=== PATIENT | male | born 1970 | race American Indian/Alaskan Native ===

== ENCOUNTER 2020-12-11 23:39 | Emergency (ER) | payer MEDICARE ==
[2020-12-12 01:20] LABS: Basophils % (Auto) 0.3 % (0.0-1.8); Eosinophils # (Auto) 0.1 K/mm3 (0.0-0.4); Eosinophils % (Auto) 0.9 % (0.0-4.3); Hematocrit 39.8 % (35.5-45.6); Lymphocytes # (Auto) 1.9 K/mm3 (1.2-5.4); Lymphocytes % (Auto) 26.2 % (13.4-35.0); Mean Corpuscular HGB Conc 33 % (32-34); Mean Corpuscular Volume 94 fl (84-94); Monocytes # (Auto) 0.7 K/mm3 (0.0-0.8); Monocytes % (Auto) 9.5 % (0.0-7.3); Platelet Count 260 K/mm3 (140-440); Red Blood Count 4.25 M/mm3 (3.65-5.03); Red Cell Distribution Width 13.8 % (13.2-15.2)
[2020-12-12 01:43] LABS: BUN/Creatinine Ratio 12; Blood Urea Nitrogen 11 mg/dL (9-20); Calcium 8.9 mg/dL (8.4-10.2); Hemolysis Index 5
[2020-12-12 01:47] LABS: Amphetamine Screen,Urine PRESUMPTIVE NEGATIVE; Benzodiazepines Screen,Urine PRESUMPTIVE NEGATIVE; Cannabinoid Screen,Urine PRESUMPTIVE NEGATIVE; Cocaine Screen,Urine PRESUMPTIVE NEGATIVE; Methadone Screen,Urine PRESUMPTIVE NEGATIVE; Opiate Screen,Urine PRESUMPTIVE NEGATIVE
[2020-12-12 02:02] LABS: Color,Urine Yellow (Yellow)
[2020-12-12 02:03] LABS: Bilirubin,Urine NEG (Negative); Blood,Urine MOD (Negative); Mucus,Urine FEW /HPF
--- NOTE | 2020-12-12 10:36 | Emergency Department Report ---
ED Psych HPI - General Chief Complaint: Psych Stated Complaint: EVALUATION Time Seen by Provider: 12/12/20 10:13 Source: patient, family Mode of arrival: Ambulatory - History of Present Illness Initial Comments: 58-year-old male, history of hypertension, diabetes, schizophrenia, anxiety, dementia, presents to ED for mental health evaluation. Patient states he has been hearing lots of voices in his head. Patient states they are not saying anything in particular. States the voices are "too much to handle." Patient states 2 days ago he had a disagreement with his , which turned into an argument. He states he became overwhelmed and went to the kitchen and grabbed a kitchen knife. Patient states his convinced him to put it down. Patient states he had no thoughts of hurting his , but did have some suicidal thoughts in that moment. Patient states he has been overwhelmed with a recent diagnosis of dementia, which patient does not believe to be true. Patient denies any alcohol or drug use. States he takes CBD Gummies. Patient states he is compliant with his psychiatric medications but they are not helping. According to triage note, family states he has been running around and acting up. MD Complaint: other -: unknown Associated Psychiatric Symptoms: suicidal ideation, auditory hallucinations Quality: intermittent Improves With: none Worsens With: none Context: significant life stressor Associated Symptoms: denies other symptoms Treatments Prior to Arrival: none If Self Harm: admits thoughts of - Related Data Home Medications Medication Instructions Recorded Confirmed Last Taken Gabapentin 300 mg PO TID 12/12/20 12/14/20 12/11/20 Hydralazine HCl 50 mg PO TID 12/12/20 12/14/20 12/11/20 Losartan [Cozaar] 100 mg PO DAILY 12/12/20 12/14/20 12/11/20 Pantoprazole [Protonix] 40 mg PO DAILY 12/12/20 12/14/20 12/11/20 Prazosin [Minipress] 2 mg PO HS 12/12/20 12/14/20 12/11/20 Sertraline [Zoloft] 100 mg PO DAILY 12/12/20 12/14/20 12/12/20 14:51 donepeziL [Aricept] 10 mg PO DAILY 12/12/20 12/14/20 12/11/20 lisinopriL [Lisinopril] 10 mg PO DAILY 12/12/20 12/14/20 12/11/20 Insulin Aspart 100 unit SQ UNK 12/14/20 12/15/20 Unknown Insulin Glargine [Lantus VIAL] 10 unit SUB-Q QHS 12/14/20 12/14/20 Unknown Insulin Glargine [Lantus VIAL] 10 units SUB-Q HS 12/14/20 12/14/20 Unknown Allergies Allergy/AdvReac Type Severity Reaction Status Date / Time No Known Allergies Allergy Verified 12/12/20 00:40 ED Review of Systems ROS: Stated complaint: EVALUATION Other details as noted in HPI Comment: All other systems reviewed and negative Psychiatric: auditory hallucinations, suicidal thoughts, other (Insomnia reported). denies: homicidal thoughts ED Past Medical Hx - Past Medical History Previous Medical History?: Yes Hx Hypertension: Yes Hx Diabetes: Yes Hx of Cancer: Yes (stomach remission) Hx Psychiatric Treatment: Yes (schizo anxiety) Additional medical history: dementia - Surgical History Past Surgical History?: Yes Additional Surgical History: gastric. right ankle. hernia with mesh - Social History Smoking Status: Never Smoker Substance Use Type: Alcohol, Marijuana - Medications Home Medications: Home Medications Medication Instructions Recorded Confirmed Last Taken Type Gabapentin 300 mg PO TID 12/12/20 12/14/20 12/11/20 History Hydralazine HCl 50 mg PO TID 12/12/20 12/14/20 12/11/20 History Losartan [Cozaar] 100 mg PO DAILY 12/12/20 12/14/20 12/11/20 History Pantoprazole [Protonix] 40 mg PO DAILY 12/12/20 12/14/20 12/11/20 History Prazosin [Minipress] 2 mg PO HS 12/12/20 12/14/20 12/11/20 History Sertraline [Zoloft] 100 mg PO DAILY 12/12/20 12/14/20 12/12/20 14:51 History donepeziL [Aricept] 10 mg PO DAILY 12/12/20 12/14/20 12/11/20 History lisinopriL [Lisinopril] 10 mg PO DAILY 12/12/20 12/14/20 12/11/20 History Insulin Aspart 100 unit SQ UNK 12/14/20 12/15/20 Unknown History Insulin Glargine [Lantus VIAL] 10 unit SUB-Q QHS 12/14/20 12/14/20 Unknown History Insulin Glargine [Lantus VIAL] 10 units SUB-Q HS 12/14/20 12/14/20 Unknown History ED Physical Exam - General Limitations: No Limitations General appearance: alert, in no apparent distress - Head Head exam: Present: atraumatic, normocephalic - Eye Eye exam: Present: normal appearance, EOMI - ENT ENT exam: Present: mucous membranes moist - Neck Neck exam: Present: normal inspection - Respiratory Respiratory exam: Present: normal lung sounds bilaterally. Absent: respiratory distress - Cardiovascular Cardiovascular Exam: Present: regular rate, normal rhythm - GI/Abdominal GI/Abdominal exam: Present: soft. Absent: distended, tenderness - Extremities Exam Extremities exam: Present: normal inspection - Neurological Exam Neurological exam: Present: alert, oriented X3 - Psychiatric Psychiatric exam: Present: normal affect, normal mood - Skin Skin exam: Present: warm, dry, intact, normal color ED Course Vital Signs 12/12/20 12/12/20 12/12/20 00:34 09:45 19:55 Temperature 98.4 F 98.8 F 97.6 F Pulse Rate 93 H 98 H 99 H Respiratory 16 18 18 Rate Blood Pressure 150/107 Blood Pressure 146/98 116/65 [Right] O2 Sat by Pulse 98 100 96 Oximetry 12/13/20 12/13/20 12/13/20 05:20 08:46 20:07 Temperature 97.7 F 98.0 F 97.6 F Pulse Rate 84 89 97 H Respiratory 18 18 18 Rate Blood Pressure Blood Pressure 126/80 163/87 110/77 [Right] O2 Sat by Pulse 97 98 98 Oximetry ED Medical Decision Making - Lab Data Result diagrams: 12/12/20 00:53 12/12/20 00:53 - Medical Decision Making 50-year-old male presents to ED with auditory hallucinations and suicidal ideations. Patient has been placed on a 1013. Labs unremarkable. Patient is medically clear for mental health evaluation. Will dispo per psych. Critical care attestation.: If time is entered above; I have spent that time in minutes in the direct care of this critically ill patient, excluding procedure time. ED Disposition Clinical Impression: Schizophrenia, Suicidal ideation Disposition: DC/TX-70 ANOTHER TYPE HLTHCARE Is pt being admited?: No Condition: Stable Referrals: KRYSTIAN CHACON,GARY [Other] - 3-5 Days
--- NOTE | 2020-12-12 10:37 | Consultation ---
History of Present Illness - Reason for Consult Consult date: 12/12/20 Reason for consult: SI - History of Present Psychiatric Illness Per ED Note: 58-year-old male, history of hypertension, diabetes, schizophrenia, anxiety, dementia, presents to ED for mental health evaluation. Patient states he has been hearing lots of voices in his head. Patient states they are not saying anything in particular. States the voices are "too much to handle." Patient states 2 days ago he had a disagreement with his , which turned into an argument. He states he became overwhelmed and went to the kitchen and grabbed a kitchen knife. Patient states his convinced him to put it down. Patient states he had no thoughts of hurting his , but did have some suicidal thoughts in that moment. Patient states he has been overwhelmed with a recent diagnosis of dementia, which patient does not believe to be true. Patient denies any alcohol or drug use. States he takes CBD Gummies. The patient was seen today, he is lying in bed awake. He is calm and cooperative. The patient says he's having suicidal thoughts, but denies having a plan. He says he has a history of anxiety, depression and schizophrenia. He says he had an argument with his and grabbed a knife to hurt himself. He denies wanting to hurt his and says "I wouldn't hurt my , I was trying to hurt myself." The patient says he "hears a lot of voices but I don't know what they are saying." He says "they are so bad at night that I can't sleep." The patient says "I have a lot of racing thoughts." PAST PSYCHIATRIC HISTORY: Diagnoses: schizophrenia, anxiety, depression Suicide attempts or Self-harm behavior: Denies Prior psychiatric hospitalizations: Yes Substance Abuse history: "gummies" Previous psychiatric medications tried: "I can't remember" Outpatient treatment: Yes PAST MEDICAL HISTORY: None reported Family Psychiatric History: None reported or documented SOCIAL HISTORY Marital Status: Living Arrangements: with spouse Employment Status: Disabled Access to guns/weapons: Denies Education: high school History of Abuse: Denies Legal History: Denies REVIEW OF SYSTEMS Constitutional: Negative for weight loss ENT: Negative for stridor Respiratory: Negative for cough or hemoptysis All other systems reviewed and are negative MENTAL STATUS EXAMINATION General Appearance and Behavior: Age appropriate, good hygiene, not wearing appropriate clothes, calm, cooperative, polite Cooperation: Participating Psychomotor Behavior: Psychomotor normal Mood: Depressed Affect and affective range: Restricted Thought Process: illogical Speech: Normal tone and pace Thought Content Suicidal Ideation: Yes Homicidal Ideation: Denies Hallucinations: Auditory Delusions: None elicited Impulse Control: Limited Insight and Judgment: Limited insight and judgment Memory: Limited Attention: Undivided Orientation: A/o x 3 Assessment and Plan (1) Schizophrenia Treatment Plan 1013 Start Risperidone 0.25mg po BID Start Prozac 10mg po daily Start Trazodone 50mg po qhs Sitter: Defer to primary Medical: Per primary Disposition: Recommend acute psychiatric inpatient Will follow. Thank you for this consult. Case staffed with Dr. Bass. Medications and Allergies Allergies Allergy/AdvReac Type Severity Reaction Status Date / Time No Known Allergies Allergy Verified 12/12/20 00:40 Mental Status Exam - Vital signs Last Vital Signs Temp 98.8 F 12/12/20 09:45 Pulse 98 H 12/12/20 09:45 Resp 18 12/12/20 09:45 BP 146/98 12/12/20 09:45 Pulse Ox 100 12/12/20 09:45 Results Result Diagrams: 12/12/20 00:53 12/12/20 00:53 Abnormal lab results 12/12/20 12/12/20 12/12/20 Range/Units 00:53 00:53 00:53 Cook % (Auto) (0.0-7.3) % Glucose 197 H (75-100) mg/dL Salicylates < 0.3 L (2.8-20.0) mg/dL Acetaminophen 5.0 L (10.0-30.0) ug/mL 12/12/20 Range/Units 00:53 Cook % (Auto) 9.5 H (0.0-7.3) % Glucose (75-100) mg/dL Salicylates (2.8-20.0) mg/dL Acetaminophen (10.0-30.0) ug/mL All other labs normal.
[2020-12-12] MEDS ORDERED: FLUoxetine 10 MG TAB PO SCH (11:00)
[2020-12-12] MEDS: risperiDONE 0.25 MG TAB PO SCH ×2 (11:18→22:06)
[2020-12-12] MEDS ORDERED: NON-FORMULARY EACH (Losartan [Cozaar] 100 MG Tablet) PO SCH (15:00)
[2020-12-12] MEDS ORDERED: NON-FORMULARY EACH (Prazosin [Minipress] 2 MG Capsule) PO SCH (15:00)
[2020-12-12] MEDS ORDERED: PANTOPRAZOLE 40 MG TAB PO SCH (15:00)
[2020-12-12] MEDS ORDERED: LISINOPRIL 10 MG TAB PO SCH (15:00)
[2020-12-12] MEDS: PRAZOSIN 1 MG CAP PO SCH (17:03)
[2020-12-12] MEDS: LOSARTAN 50 MG TAB PO SCH (17:03)
[2020-12-12] MEDS ORDERED: NON-FORMULARY EACH (Hydralazine Hcl [Hydralazine Hcl] 50 MG Tablet) PO SCH (20:00)
[2020-12-12] MEDS: hydrALAZINE 25 MG TAB PO SCH (22:00)
[2020-12-12] MEDS: GABAPENTIN 300 MG CAP PO SCH (22:05)
[2020-12-12] MEDS: traZODone 50 MG TAB PO SCH (22:05)
[2020-12-13] MEDS: GABAPENTIN 300 MG CAP PO SCH ×3 (08:00→23:35)
--- NOTE | 2020-12-13 08:59 | Progress Note ---
Subjective - Reason for Consult Consult date: 12/13/20 Reason for consult: SI/hallucinations - Chief Complaint Chief complaint: The patient was seen today, he says he has a lot of negative thoughts and hearing a lot of voices. He says the voices are telling him he's no good and people would be better off if he was no longer alive. He's talking about his and the problems they are having. This seems to be the source of his emotional instability. REVIEW OF SYSTEMS Constitutional: Negative for weight loss ENT: Negative for stridor Respiratory: Negative for cough or hemoptysis All other systems reviewed and are negative MENTAL STATUS EXAMINATION General Appearance and Behavior: Age appropriate, good hygiene, not wearing appropriate clothes, calm, cooperative, polite Cooperation: Participating Psychomotor Behavior: Psychomotor normal Mood: Depressed Affect and affective range: Restricted Thought Process: illogical Speech: Normal tone and pace Thought Content Suicidal Ideation: Yes Homicidal Ideation: Denies Hallucinations: Auditory Delusions: None elicited Impulse Control: Limited Insight and Judgment: Limited insight and judgment Memory: Limited Attention: Undivided Orientation: A/o x 3 Assessment and Plan (1) Schizophrenia Treatment Plan 1013 Increased Risperidone 0.5mg po BID Increased Prozac 20mg po daily Continue Trazodone 50mg po qhs Sitter: Defer to primary Medical: Per primary Disposition: Recommend acute psychiatric inpatient Will follow. Thank you for this consult. Case staffed with Dr. Bass. Mental Status Exam - Vital signs Last Vital Signs Temp 98.0 F 12/13/20 08:46 Pulse 89 12/13/20 08:46 Resp 18 12/13/20 08:46 BP 163/87 12/13/20 08:46 Pulse Ox 98 12/13/20 08:46
[2020-12-13] MEDS ORDERED: PANTOPRAZOLE 40 MG TAB PO SCH (10:00)
[2020-12-13] MEDS ORDERED: LISINOPRIL 10 MG TAB PO SCH (10:00)
[2020-12-13] MEDS ORDERED: FLUoxetine 20 MG CAP PO SCH (10:00)
[2020-12-13] MEDS: PRAZOSIN 1 MG CAP PO SCH (11:00)
[2020-12-13] MEDS: LOSARTAN 50 MG TAB PO SCH (12:09)
[2020-12-13] MEDS: hydrALAZINE 25 MG TAB PO SCH ×3 (12:09→23:34)
[2020-12-13] MEDS: risperiDONE 0.25 MG TAB PO SCH ×2 (12:10→23:35)
[2020-12-13 20:08] VITALS: BP 110/77
[2020-12-13] MEDS: traZODone 50 MG TAB PO SCH (23:35)
== END 2020-12-14 01:23 | disposition other institution (70) ==
LOC: EEVIPCON 23:39 → ED 23:39
DX: F25.9 Schizoaffective disorder, unspecified (principal); R45.851 Suicidal ideations; F41.9 Anxiety disorder, unspecified; F03.90 Unspecified dementia, unspecified severity, without behavioral disturbance, psychotic disturbance, mood disturbance, and anxiety; E11.9 Type 2 diabetes mellitus without complications; I10 Essential (primary) hypertension; F12.90 Cannabis use, unspecified, uncomplicated; Z98.890 Other specified postprocedural states; Z79.899 Other long term (current) drug therapy
CPT/HCPCS: 36415; 80048; 80307; 80320; 81001; 85025; G0480

== ENCOUNTER 2020-12-13 16:52 | Inpatient (IN) | payer MEDICARE ==
--- NOTE | 2020-12-14 07:37 | History and Physical Report ---
GP History & Physical - History of Present Illness Date of admission: 12/13/20 Date of Examination: 12/14/20 Reason for Admission: Impaired reality testing, Psychopathology interference, Severe anxiety/depression History of Present Illness: HPI Patient is a 50-year-old, currently , unemployed currently on disability lives with with past psychiatric history of schizophrenia, MDD, anxiety and bipolar and past medical history of hypertension who was admitted due to suicidal ideation and depression. Patient reports recently was diagnosed with early grade imaging signs of dementia per his primary care provider told him that he is not currently demented and that was by Dr. Parekh. Patient states he feels his schizophrenia is flaring back up, is not able to get things going on normally with his life. Patient reported dysfunctional family issues mostly surrounding his and her relationship with her family members including his older children as they are not able to get along together. Also reports being haunted by the loss of his son by his ex- whom is try to rebuild relationship with. Patient reported losing his for some in thousand and 4 due to prematurity and has since then been constantly feeling guilty about it Patient initially presented to [facility] emergency room with chief complaint of hearing voices in his head, patient reported the voices and the same thing in particular, stated voices are just too much to handle for him. Patient reported having a disagreement with his , which turned into an agreement irritated, and became overwhelmed or suicidal and also homicidal. She also reported recent diagnosis of dementia, which he does not believe to be true. Patient endorses compliance with his psychiatric medications. During my interview today patient appears very tearful and sad PAST PSYCHIATRIC HISTORY: Diagnoses: schizophrenia, anxiety, depression Suicide attempts or Self-harm behavior: Denies Prior psychiatric hospitalizations: Yes Substance Abuse history: "gummies" Previous psychiatric medications tried: "I can't remember" Outpatient treatment: Yes PAST MEDICAL HISTORY: None reported Family Psychiatric History: None reported or documented SOCIAL HISTORY Marital Status: Living Arrangements: with spouse Employment Status: Disabled Access to guns/weapons: Denies Education: high school History of Abuse: Denies Legal History: Denies REVIEW OF SYSTEMS Constitutional: Negative for weight loss ENT: Negative for stridor Respiratory: Negative for cough or hemoptysis All other systems reviewed and are negative MENTAL STATUS EXAMINATION General Appearance and Behavior: Age appropriate, good hygiene, wearing appropriate clothes,, good eye contact Cooperation: Participating/engaged, but Guarded Psychomotor Behavior: Psychomotor normal Mood: depressed Affect and affective range: irritable, labile Thought Process: illogical Thought Content: hopelessness, helplessness Speech: Normal rate, volume and rythm Intellectual Functioning: Average Suicidal Ideation: SI Homicidal Ideation: Denies HI Impulse Control: Impaired Insight and Judgment: Limited insight and judgment Memory: Normal Attention: Normal Orientation: Alert, oriented Assessment and Plan - Psychiatric problem (1) Bipolar 2 disorder Current Visit: Yes Status: Acute Treatment Plan Patient admitted for inpatient psychiatric evaluation, medication adjustment and close monitoring The patient's behavior, mood, sleep and appetite will be closely monitored. Patient enrolled in individual and group therapeutic sessions and encouraged to attend. Patient provided with a safe and structured environment. Patient's physical health needs will be addressed by the Hospitalist. Hospitalist Consulted Labs including CBC, CMP, Lipid profile and Hemoglobin A1C levels ordered for baseline reference Social Assessment will be completed and the Office Cashier will work with patient and family to ensure a suitable and safe disposition Medication adjustment will be made as clinically indicated Usual Wellness Orthodoxy/Preservation: - Start Trazodone 50 mg po QHS & 50 mg po QHS PRN between 10 PM & 2 AM for i nsomnia - Start Melatonin 5 mg po QHS to promote circadian rhythm - Start [place]-3 for brain health, reduce impulsivity, and as adjunctive treatment for mood disorder, continue upon discharge given overall benefits. - Start B1 prophylaxis with 200 mg po for 5 days The patient agreed on the treatment plan, understood the risk, benefit, alternative treatment, potential consequence of no treatment, and gave informed consent. Initial Certification Inpatient psych services: I certify that the inpatient psychiatric services are required for treatment that could reasonably be expected to improve the patient's condition. Estimated days: 7 Post hospital care: primary care provider, psychiatric provider Legal Status: Voluntary Patient Problems: Current Active Problems Bipolar 2 disorder (Acute) Reaction to Hospitalization: Accepting Medications and Allergies Allergies Allergy/AdvReac Type Severity Reaction Status Date / Time No Known Allergies Allergy Verified 12/12/20 00:40 Home Medications Medication Instructions Recorded Confirmed Last Taken Type Gabapentin 300 mg PO TID 12/12/20 12/12/20 12/11/20 History Hydralazine HCl 50 mg PO TID 12/12/20 12/12/20 12/11/20 History Losartan [Cozaar] 100 mg PO ONCE 12/12/20 12/12/20 12/11/20 History Pantoprazole [Protonix] 40 mg PO ONCE 12/12/20 12/12/20 12/11/20 History Prazosin [Minipress] 2 mg PO ONCE 12/12/20 12/12/20 12/11/20 History Sertraline [Zoloft] 100 mg PO ONCE 12/12/20 12/12/20 12/12/20 14:51 History donepeziL [Aricept] 10 mg PO ONCE 12/12/20 12/12/20 12/11/20 History lisinopriL [Lisinopril] 10 mg PO ONCE 12/12/20 12/12/20 12/11/20 History Active Meds: Active Medications Trazodone HCl (Trazodone 50 Mg Tab) 50 mg PO QHS [facility] Results - Results Labs/Vitals: Laboratory Last Values POC Glucose 131 mg/dL (70-105) H 12/14/20 03:35 Last Vital Signs Temp 97.5 F L 12/14/20 03:33 Pulse 87 12/14/20 03:33 Resp 16 12/14/20 03:33 BP 149/102 12/14/20 03:33 Pulse Ox 96 12/14/20 03:33 Physical Examination - Constitutional Vitals: Vital Signs Temp Pulse Resp BP Pulse Ox 97.5 F L 87 16 149/102 96 12/14/20 03:33 12/14/20 03:33 12/14/20 03:33 12/14/20 03:33 12/14/20 03:33 Temperature -Last 24 Hours Temperature 97.5 F Mental Status Exam - Vital signs Last Vital Signs Temp 97.5 F L 12/14/20 03:33 Pulse 87 12/14/20 03:33 Resp 16 12/14/20 03:33 BP 149/102 12/14/20 03:33 Pulse Ox 96 12/14/20 03:33 Assessment and Plan - Psychiatric problem (1) Bipolar 2 disorder Current Visit: Yes Status: Acute Physician Certification - Certification Statement Physician Certification Statement: This is an acknowledgement statement that OSMANY GUTIERREZ is a 50 year old M who requires inpatient psychiatric admission for treatment which could reasonably be expected to improve the patient's condition for Estimated period of time patient will need to remain in the hospital: [ ] Plan for post-hospital care: [ ]
[2020-12-14 09:04] LABS: Basophils % (Auto) 0.6 % (0.0-1.8); Eosinophils # (Auto) 0.1 K/mm3 (0.0-0.4); Eosinophils % (Auto) 1.4 % (0.0-4.3); Hematocrit 39.8 % (35.5-45.6); Hemoglobin 13.4 gm/dl (11.8-15.2); Lymphocytes # (Auto) 2.2 K/mm3 (1.2-5.4); Lymphocytes % (Auto) 34.2 % (13.4-35.0); Mean Corpuscular HGB Conc 34 % (32-34); Mean Corpuscular Volume 93 fl (84-94); Monocytes # (Auto) 0.6 K/mm3 (0.0-0.8); Monocytes % (Auto) 9.3 % (0.0-7.3); Platelet Count 255 K/mm3 (140-440); Red Blood Count 4.27 M/mm3 (3.65-5.03); Red Cell Distribution Width 13.7 % (13.2-15.2)
[2020-12-14 09:36] LABS: Alanine Aminotransferase 34 units/L (7-56); Albumin 3.7 g/dL (3.9-5); BUN/Creatinine Ratio 13; Blood Urea Nitrogen 12 mg/dL (9-20); Chol/HDL Ratio 3.22 %; HDL Cholesterol 72 mg/dL (40-59); Hemolysis Index 26; LDL Cholesterol,Direct 162 mg/dL (50-130)
[2020-12-14] MEDS: SERTRALINE 100 MG TAB PO SCH (11:14)
[2020-12-14] MEDS: DONEPEZIL 10 MG TAB PO SCH (11:14)
[2020-12-14] MEDS: ARIPiprazole 5 MG TAB PO SCH (11:14)
--- NOTE | 2020-12-14 13:08 | Consultation ---
History of Present Illness - Reason for Consult Consult date: 12/14/20 Medical Management Requesting physician: JONATHAN MALIK - History of Present Illness 50 YO Male with Obesity, DMdiet controlled, HTN, Schizophrenia, Dementia, Gastric Cancer in remission, JON admitted to [facility] for Psychiatric Stabilization. Pt seen and evaluated in his room. Pt denies fever, chills, CP, palpitations, NVD, Trauma, known COVID 19 Exposure, or recent ill contacts. No reported nursing events. No reported nursing events. Past History Past Medical History: cancer, diabetes, other (see hpi) Past Surgical History: hernia repair, Other ( gastric. right ankle. hernia with mesh) Social history: . denies: smoking, alcohol abuse, prescription drug abuse Family history: diabetes, hypertension Medications and Allergies Allergies Allergy/AdvReac Type Severity Reaction Status Date / Time No Known Allergies Allergy Verified 12/12/20 00:40 Home Medications Medication Instructions Recorded Confirmed Last Taken Type Gabapentin 300 mg PO TID 12/12/20 12/14/20 12/11/20 History Hydralazine HCl 50 mg PO TID 12/12/20 12/14/20 12/11/20 History Losartan [Cozaar] 100 mg PO DAILY 12/12/20 12/14/20 12/11/20 History Pantoprazole [Protonix] 40 mg PO DAILY 12/12/20 12/14/20 12/11/20 History Prazosin [Minipress] 2 mg PO HS 12/12/20 12/14/20 12/11/20 History Sertraline [Zoloft] 100 mg PO DAILY 12/12/20 12/14/20 12/12/20 14:51 History donepeziL [Aricept] 10 mg PO DAILY 12/12/20 12/14/20 12/11/20 History lisinopriL [Lisinopril] 10 mg PO DAILY 12/12/20 12/14/20 12/11/20 History Insulin Aspart 100 unit SQ 12/14/20 Unknown History Insulin Glargine [Lantus VIAL] 10 unit SUB-Q QHS 12/14/20 12/14/20 Unknown History Insulin Glargine [Lantus VIAL] 10 units SUB-Q HS 12/14/20 12/14/20 Unknown History Active Meds: Active Medications Aripiprazole (Aripiprazole 5 Mg Tab) 5 mg PO QDAY [facility] Last Admin: 12/14/20 11:14 Dose: 5 mg Documented by: Donepezil HCl (Donepezil 10 Mg Tab) 10 mg PO DAILY [facility] Last Admin: 12/14/20 11:14 Dose: 10 mg Documented by: Gabapentin (Gabapentin 300 Mg Cap) 300 mg PO TID [facility] Sertraline HCl (Sertraline 100 Mg Tab) 100 mg PO DAILY [facility] Last Admin: 12/14/20 11:14 Dose: 100 mg Documented by: Trazodone HCl (Trazodone 50 Mg Tab) 50 mg PO QHS [facility] Review of Systems Constitutional: no weight loss, no weight gain, no fever, no chills Ears, nose, mouth and throat: no ear pain, no tinnitis, no decreased hearing Cardiovascular: no chest pain, no rapid/irregular heart beat, no edema, no syncope Respiratory: no cough, no excessive sputum, no hemoptysis, no shortness of breath Gastrointestinal: no abdominal pain, no nausea, no diarrhea Genitourinary Male: no hematuria, no urinary frequency, no urinary hesitancy, no incontinence Musculoskeletal: no neck stiffness, no shooting arm pain, no arm numbness/tingling Integumentary: no rash, no redness, no sores Neurological: no head injury, no paralysis, no numbness, no syncope, no ataxia Psychiatric: no change in sleep habits, no change in appetite, no disorientation Endocrine: no cold intolerance, no excessive thirst, no polyuria, no nocturia, no weight change Hematologic/Lymphatic: no easy bruising Exam - Constitutional Vitals: Temp Pulse Resp BP Pulse Ox 97.5 F L 87 18 149/102 96 12/14/20 09:26 12/14/20 09:26 12/14/20 09:26 12/14/20 09:26 12/14/20 09:26 General appearance: Present: obese - EENT Eyes: Present: PERRL ENT: hearing intact, clear oral mucosa - Neck Neck: Present: supple, normal ROM - Respiratory Respiratory effort: normal Respiratory: bilateral: CTA - Cardiovascular Heart Sounds: Present: S1 & S2. Absent: rub, click - Extremities Extremities: pulses symmetrical, No edema Peripheral Pulses: within normal limits - Abdominal General gastrointestinal: Present: soft, non-tender, non-distended, normal bowel sounds Male genitourinary: Present: normal - Integumentary Integumentary: Present: clear, warm, dry - Musculoskeletal Musculoskeletal: gait normal, strength equal bilaterally - Psychiatric Psychiatric: appropriate mood/affect, intact judgment & insight - Neurologic Neurologic: CNII-XII intact, moves all extremities Results - Labs CBC & Chem 7: 12/14/20 08:30 12/14/20 08:30 Labs: Abnormal lab results 12/14/20 12/14/20 12/14/20 Range/Units 03:35 08:30 08:30 [place] % (Auto) 9.3 H (0.0-7.3) % Glucose 136 H (75-100) mg/dL POC Glucose 131 H (70-105) mg/dL Hemoglobin A1c (4-6) % Albumin 3.7 L (3.9-5) g/dL Cholesterol 232 H (50-199) mg/dL LDL Cholesterol Direct 162 H (50-130) mg/dL HDL Cholesterol 72 H (40-59) mg/dL 12/14/20 Range/Units 08:30 [place] % (Auto) (0.0-7.3) % Glucose (75-100) mg/dL POC Glucose (70-105) mg/dL Hemoglobin A1c 6.9 H (4-6) % Albumin (3.9-5) g/dL Cholesterol (50-199) mg/dL LDL Cholesterol Direct (50-130) mg/dL HDL Cholesterol (40-59) mg/dL Assessment and Plan - Patient Problems (1) HTN (hypertension) Current Visit: Yes Status: Acute Qualifiers: Hypertension type: essential hypertension Qualified Code(s): I10 - Essential (primary) hypertension Plan to address problem: Monitor blood pressure every shift, continue medical management (2) Diabetes Current Visit: Yes Status: Acute Plan to address problem: Consistent carbohydrate diet, (3) Anxiety Current Visit: Yes Status: Acute Plan to address problem: Supportive care, benzodiazepine therapy as clinically indicated (4) Dementia Current Visit: Yes Status: Acute Qualifiers: Alzheimer's disease onset: early-onset Plan to address problem: Supportive care, continue medical management, verbal prompting, verbal redirection
[2020-12-14] MEDS: GABAPENTIN 300 MG CAP PO SCH ×2 (14:42→21:17)
[2020-12-14] MEDS: traZODone 50 MG TAB PO SCH ×2 (20:21→21:17)
--- NOTE | 2020-12-15 08:24 | Progress Note ---
Subjective Date of service: 12/15/20 Principal diagnosis: (1) Bipolar 2 disorder Subjective Comment: Per Psych Nurse: Pt is appropriate on the unit, he is calm and cooperative, alert and orientedx3, reported feeling better, medication compliant, good appetite, no complaints voiced, rested well during the night, presents as sleeping for approximately 8hrs , no distress noted, will continue to monitor for safety. Psych Progress Patient reports sleeping good, denies having any nightmares, no voices in his head since yesterday night but reports when he woke up this morning he was hearing some voices in his head and then he realized other people around him so he could not really specifically state if the voices he was hearing was of those people or the voices that he was still hearing prior to coming here. Patient reports speaking with his sister and also with his yesterday reported conversation went pretty good, reports mood today has been okay, denies SI or HI Reason for continuing inpatient treatment: Patient showing mild to moderate response to treatment at this moment, will continue to observe for completion resolution of symptoms REVIEW OF SYSTEMS Constitutional: Negative for weight loss ENT: Negative for stridor Respiratory: Negative for cough or hemoptysis All other systems reviewed and are negative MENTAL STATUS EXAMINATION General Appearance and Behavior: Age appropriate, good hygiene, wearing appropriate clothes,, good eye contact Cooperation: Participating/engaged, but Guarded Psychomotor Behavior: Psychomotor normal Mood: depressed Affect and affective range: irritable, labile Thought Process: illogical Thought Content: hopelessness, helplessness Speech: Normal rate, volume and rythm Intellectual Functioning: Average Suicidal Ideation: SI Homicidal Ideation: Denies HI Impulse Control: Impaired Insight and Judgment: Limited insight and judgment Memory: Normal Attention: Normal Orientation: Alert, oriented Assessment and Plan - Psychiatric problem (1) Bipolar 2 disorder Current Visit: Yes Status: Acute Treatment Plan Continue current medication Patient admitted for inpatient psychiatric evaluation, medication adjustment and close monitoring The patient's behavior, mood, sleep and appetite will be closely monitored. Patient enrolled in individual and group therapeutic sessions and encouraged to attend. Patient provided with a safe and structured environment. Patient's physical health needs will be addressed by the Hospitalist. Hospitalist Consulted Labs including CBC, CMP, Lipid profile and Hemoglobin A1C levels ordered for baseline reference Social Assessment will be completed and the Grade School Teacher will work with patient and family to ensure a suitable and safe disposition Medication adjustment will be made as clinically indicated Usual Wellness [employer]/Preservation: - Start Trazodone 50 mg po QHS & 50 mg po QHS PRN between 10 PM & 2 AM for insomnia - Start Melatonin 5 mg po QHS to promote circadian rhythm - Start [place]-3 for brain health, reduce impulsivity, and as adjunctive treatment for mood disorder, continue upon discharge given overall benefits. - Start B1 prophylaxis with 200 mg po for 5 days The patient agreed on the treatment plan, understood the risk, benefit, alternative treatment, potential consequence of no treatment, and gave informed consent. Initial Certification Inpatient psych services: I certify that the inpatient psychiatric services are required for treatment that could reasonably be expected to improve the patient's condition. Estimated days: 6 Post hospital care: primary care provider, psychiatric provider Assessment and Plan - Patient Problems (1) Bipolar 2 disorder Current Visit: Yes Status: Acute Medications and Allergies Allergies Allergy/AdvReac Type Severity Reaction Status Date / Time No Known Allergies Allergy Verified 12/12/20 00:40 Home Medications Medication Instructions Recorded Confirmed Last Taken Type Gabapentin 300 mg PO TID 12/12/20 12/14/20 12/11/20 History Hydralazine HCl 50 mg PO TID 12/12/20 12/14/20 12/11/20 History Losartan [Cozaar] 100 mg PO DAILY 12/12/20 12/14/20 12/11/20 History Pantoprazole [Protonix] 40 mg PO DAILY 12/12/20 12/14/20 12/11/20 History Prazosin [Minipress] 2 mg PO HS 12/12/20 12/14/20 12/11/20 History Sertraline [Zoloft] 100 mg PO DAILY 12/12/20 12/14/20 12/12/20 14:51 History donepeziL [Aricept] 10 mg PO DAILY 12/12/20 12/14/20 12/11/20 History lisinopriL [Lisinopril] 10 mg PO DAILY 12/12/20 12/14/20 12/11/20 History Insulin Aspart 100 unit SQ 12/14/20 Unknown History Insulin Glargine [Lantus VIAL] 10 unit SUB-Q QHS 12/14/20 12/14/20 Unknown History Insulin Glargine [Lantus VIAL] 10 units SUB-Q HS 12/14/20 12/14/20 Unknown History Active Meds: Active Medications Aripiprazole (Aripiprazole 5 Mg Tab) 5 mg PO QDAY [facility] Last Admin: 12/14/20 11:14 Dose: 5 mg Documented by: Donepezil HCl (Donepezil 10 Mg Tab) 10 mg PO DAILY [facility] Last Admin: 12/14/20 11:14 Dose: 10 mg Documented by: Gabapentin (Gabapentin 300 Mg Cap) 300 mg PO TID [facility] Last Admin: 12/14/20 21:17 Dose: 300 mg Documented by: Sertraline HCl (Sertraline 100 Mg Tab) 100 mg PO DAILY [facility] Last Admin: 12/14/20 11:14 Dose: 100 mg Documented by: Trazodone HCl (Trazodone 50 Mg Tab) 50 mg PO QHS [facility] Last Admin: 12/14/20 21:17 Dose: 50 mg Documented by: Results - Results Labs/Vitals: Laboratory Last Values WBC 6.6 K/mm3 (4.5-11.0) 12/14/20 08:30 RBC 4.27 M/mm3 (3.65-5.03) 12/14/20 08:30 Hgb 13.4 gm/dl (11.8-15.2) 12/14/20 08:30 Hct 39.8 % (35.5-45.6) 12/14/20 08:30 MCV 93 fl (84-94) 12/14/20 08:30 MCH 32 pg (28-32) 12/14/20 08:30 MCHC 34 % (32-34) 12/14/20 08:30 RDW 13.7 % (13.2-15.2) 12/14/20 08:30 Plt Count 255 K/mm3 (140-440) 12/14/20 08:30 Lymph % (Auto) 34.2 % (13.4-35.0) 12/14/20 08:30 [place] % (Auto) 9.3 % (0.0-7.3) H 12/14/20 08:30 Eos % (Auto) 1.4 % (0.0-4.3) 12/14/20 08:30 Baso % (Auto) 0.6 % (0.0-1.8) 12/14/20 08:30 Lymph # (Auto) 2.2 K/mm3 (1.2-5.4) 12/14/20 08:30 [place] # (Auto) 0.6 K/mm3 (0.0-0.8) 12/14/20 08:30 Eos # (Auto) 0.1 K/mm3 (0.0-0.4) 12/14/20 08:30 Baso # (Auto) 0.0 K/mm3 (0.0-0.1) 12/14/20 08:30 Seg Neutrophils % 54.5 % (40.0-70.0) 12/14/20 08:30 Seg Neutrophils # 3.6 K/mm3 (1.8-7.7) 12/14/20 08:30 Sodium 140 mmol/L (137-145) 12/14/20 08:30 Potassium 3.8 mmol/L (3.6-5.0) 12/14/20 08:30 Chloride 103.6 mmol/L (98-107) 12/14/20 08:30 Carbon Dioxide 27 mmol/L (22-30) 12/14/20 08:30 Anion Gap 13 mmol/L 12/14/20 08:30 BUN 12 mg/dL (9-20) 12/14/20 08:30 Creatinine 0.9 mg/dL (0.8-1.3) 12/14/20 08:30 Estimated GFR > 60 ml/min 12/14/20 08:30 BUN/Creatinine Ratio 13 % 12/14/20 08:30 Glucose 136 mg/dL (75-100) H 12/14/20 08:30 POC Glucose 158 mg/dL (70-105) H 12/15/20 06:29 Hemoglobin A1c 6.9 % (4-6) H 12/14/20 08:30 Calcium 9.0 mg/dL (8.4-10.2) 12/14/20 08:30 Total Bilirubin 0.50 mg/dL (0.1-1.2) 12/14/20 08:30 AST 18 units/L (5-40) 12/14/20 08:30 ALT 34 units/L (7-56) 12/14/20 08:30 Alkaline Phosphatase 89 units/L (35-129) 12/14/20 08:30 Total Protein 7.5 g/dL (6.3-8.2) 12/14/20 08:30 Albumin 3.7 g/dL (3.9-5) L 12/14/20 08:30 Albumin/Globulin Ratio 1.0 % 12/14/20 08:30 Triglycerides 137 mg/dL (2-149) 12/14/20 08:30 Cholesterol 232 mg/dL (50-199) H 12/14/20 08:30 LDL Cholesterol Direct 162 mg/dL (50-130) H 12/14/20 08:30 HDL Cholesterol 72 mg/dL (40-59) H 12/14/20 08:30 Cholesterol/HDL Ratio 3.22 % 12/14/20 08:30 TSH 0.771 mlU/mL (0.270-4.200) 12/14/20 08:30 Last Vital Signs Temp 97.8 F 12/14/20 22:00 Pulse 101 H 12/14/20 22:00 Resp 20 12/14/20 22:00 BP 121/74 12/14/20 22:00 Pulse Ox 98 12/14/20 22:00
[2020-12-15] MEDS: DONEPEZIL 10 MG TAB PO SCH (09:14)
[2020-12-15] MEDS: SERTRALINE 100 MG TAB PO SCH (09:14)
[2020-12-15] MEDS: GABAPENTIN 300 MG CAP PO SCH ×3 (09:14→20:34)
[2020-12-15] MEDS: ARIPiprazole 5 MG TAB PO SCH (09:14)
[2020-12-15] MEDS: INSULIN LISPRO 100 UNIT/ML SUB-Q SCH ×3 (12:45→21:46)
[2020-12-15] MEDS: INSULIN GLARGINE 100 UNITS/ML SUB-Q SCH (21:11)
[2020-12-15] MEDS: traZODone 50 MG TAB PO SCH (21:11)
--- NOTE | 2020-12-16 08:36 | Progress Note ---
Subjective Date of service: 12/16/20 Principal diagnosis: (1) Bipolar 2 disorder Subjective Comment: Per Psych Nurse: 1900 Report received, patient setting in recliner in the activity room. Patient pleasant and spoke with a smile when approached. Patient stated he had a good day today and denied any discomfort. Presently sitting and socially interacting with another patient, speaking in a soft tone. Patient will be monitored closely this shift. Psych Progress Patient seen today states he has no complaints, patient states that he was thinking maybe if he could go to a long-term residential treatment program for something easier to figure out at this moment. Patient endorses that he is able to talk about his late child now without being too emotional and is looking forward to talking to his ex- about it later today. He denies feeling depressed, denies SI HI. Reason for continuing inpatient treatment: Patient plans to talk with ex- about late child help with grieving process, will observe patient's mood sta bility after this. REVIEW OF SYSTEMS Constitutional: Negative for weight loss ENT: Negative for stridor Respiratory: Negative for cough or hemoptysis All other systems reviewed and are negative MENTAL STATUS EXAMINATION General Appearance and Behavior: Age appropriate, good hygiene, wearing appropriate clothes, good eye contact, cooperative polite with questioning. Cooperation: Participating/engaged Psychomotor Behavior: unremarkable and within normal limits Mood: Good Affect and affective range: congruent with mood Thought Process: Fluent/Logical, Thought Content: Within reality, Speech: Normal volume, Regular rate and rhythm, Intellectual Functioning: Average Suicidal Ideation: Denies SI Homicidal Ideation: Denies HI Impulse Control: Unimpaired Insight and Judgment: Normal insight and judgment, Memory: Normal, Attention: Normal, Orientation: Alert, oriented, Assessment and Plan - Psychiatric problem (1) Bipolar 2 disorder Current Visit: Yes Status: Acute Treatment Plan Continue current medication Patient admitted for inpatient psychiatric evaluation, medication adjustment and close monitoring The patient's behavior, mood, sleep and appetite will be closely monitored. Patient enrolled in individual and group therapeutic sessions and encouraged to attend. Patient provided with a safe and structured environment. Patient's physical health needs will be addressed by the Hospitalist. Hospitalist Consulted Labs including CBC, CMP, Lipid profile and Hemoglobin A1C levels ordered for baseline reference Social Assessment will be completed and the Drug Counselor will work with patient and family to ensure a suitable and safe disposition Medication adjustment will be made as clinically indicated Usual Wellness [employer]/Preservation: - Start Trazodone 50 mg po QHS & 50 mg po QHS PRN between 10 PM & 2 AM for inso mnia - Start Melatonin 5 mg po QHS to promote circadian rhythm - Start [place]-3 for brain health, reduce impulsivity, and as adjunctive treatment for mood disorder, continue upon discharge given overall benefits. - Start B1 prophylaxis with 200 mg po for 5 days The patient agreed on the treatment plan, understood the risk, benefit, alternative treatment, potential consequence of no treatment, and gave informed consent. Initial Certification Inpatient psych services: I certify that the inpatient psychiatric services are required for treatment that could reasonably be expected to improve the patient's condition. Estimated days: 5 Post hospital care: primary care provider, psychiatric provider Assessment and Plan - Patient Problems (1) Bipolar 2 disorder Current Visit: Yes Status: Acute Medications and Allergies Allergies Allergy/AdvReac Type Severity Reaction Status Date / Time No Known Allergies Allergy Verified 12/12/20 00:40 Home Medications Medication Instructions Recorded Confirmed Last Taken Type Gabapentin 300 mg PO TID 12/12/20 12/14/20 12/11/20 History Hydralazine HCl 50 mg PO TID 12/12/20 12/14/20 12/11/20 History Losartan [Cozaar] 100 mg PO DAILY 12/12/20 12/14/20 12/11/20 History Pantoprazole [Protonix] 40 mg PO DAILY 12/12/20 12/14/20 12/11/20 History Prazosin [Minipress] 2 mg PO HS 12/12/20 12/14/20 12/11/20 History Sertraline [Zoloft] 100 mg PO DAILY 12/12/20 12/14/20 12/12/20 14:51 History donepeziL [Aricept] 10 mg PO DAILY 12/12/20 12/14/20 12/11/20 History lisinopriL [Lisinopril] 10 mg PO DAILY 12/12/20 12/14/20 12/11/20 History Insulin Aspart 100 unit SQ UNK 12/14/20 12/15/20 Unknown History Insulin Glargine [Lantus VIAL] 10 unit SUB-Q QHS 12/14/20 12/14/20 Unknown History Insulin Glargine [Lantus VIAL] 10 units SUB-Q HS 12/14/20 12/14/20 Unknown History Active Meds: Active Medications Aripiprazole (Aripiprazole 5 Mg Tab) 5 mg PO QDAY [facility] Last Admin: 12/15/20 09:14 Dose: 5 mg Documented by: Donepezil HCl (Donepezil 10 Mg Tab) 10 mg PO DAILY [facility] Last Admin: 12/15/20 09:14 Dose: 10 mg Documented by: Gabapentin (Gabapentin 300 Mg Cap) 300 mg PO TID [facility] Last Admin: 12/15/20 20:34 Dose: 300 mg Documented by: Insulin Glargine (Insulin Glargine 100 Units/Ml) 10 units SUB-Q QHS [facility] Last Admin: 12/15/20 21:11 Dose: 10 units Documented by: Insulin Human Lispro (Insulin Lispro 100 Unit/Ml) 0 unit SUB-Q ACHS [facility]; Protocol Last Admin: 12/15/20 21:46 Dose: 2 unit Documented by: Sertraline HCl (Sertraline 100 Mg Tab) 100 mg PO DAILY [facility] Last Admin: 12/15/20 09:14 Dose: 100 mg Documented by: Trazodone HCl (Trazodone 50 Mg Tab) 50 mg PO QHS [facility] Last Admin: 12/15/20 21:11 Dose: 50 mg Documented by: Results - Results Labs/Vitals: Laboratory Last Values WBC 6.6 K/mm3 (4.5-11.0) 12/14/20 08:30 RBC 4.27 M/mm3 (3.65-5.03) 12/14/20 08:30 Hgb 13.4 gm/dl (11.8-15.2) 12/14/20 08:30 Hct 39.8 % (35.5-45.6) 12/14/20 08:30 MCV 93 fl (84-94) 12/14/20 08:30 MCH 32 pg (28-32) 12/14/20 08:30 MCHC 34 % (32-34) 12/14/20 08:30 RDW 13.7 % (13.2-15.2) 12/14/20 08:30 Plt Count 255 K/mm3 (140-440) 12/14/20 08:30 Lymph % (Auto) 34.2 % (13.4-35.0) 12/14/20 08:30 [place] % (Auto) 9.3 % (0.0-7.3) H 12/14/20 08:30 Eos % (Auto) 1.4 % (0.0-4.3) 12/14/20 08:30 Baso % (Auto) 0.6 % (0.0-1.8) 12/14/20 08:30 Lymph # (Auto) 2.2 K/mm3 (1.2-5.4) 12/14/20 08:30 [place] # (Auto) 0.6 K/mm3 (0.0-0.8) 12/14/20 08:30 Eos # (Auto) 0.1 K/mm3 (0.0-0.4) 12/14/20 08:30 Baso # (Auto) 0.0 K/mm3 (0.0-0.1) 12/14/20 08:30 Seg Neutrophils % 54.5 % (40.0-70.0) 12/14/20 08:30 Seg Neutrophils # 3.6 K/mm3 (1.8-7.7) 12/14/20 08:30 Sodium 140 mmol/L (137-145) 12/14/20 08:30 Potassium 3.8 mmol/L (3.6-5.0) 12/14/20 08:30 Chloride 103.6 mmol/L (98-107) 12/14/20 08:30 Carbon Dioxide 27 mmol/L (22-30) 12/14/20 08:30 Anion Gap 13 mmol/L 12/14/20 08:30 BUN 12 mg/dL (9-20) 12/14/20 08:30 Creatinine 0.9 mg/dL (0.8-1.3) 12/14/20 08:30 Estimated GFR > 60 ml/min 12/14/20 08:30 BUN/Creatinine Ratio 13 % 12/14/20 08:30 Glucose 136 mg/dL (75-100) H 12/14/20 08:30 POC Glucose 194 mg/dL (70-105) H 12/15/20 19:53 Hemoglobin A1c 6.9 % (4-6) H 12/14/20 08:30 Calcium 9.0 mg/dL (8.4-10.2) 12/14/20 08:30 Total Bilirubin 0.50 mg/dL (0.1-1.2) 12/14/20 08:30 AST 18 units/L (5-40) 12/14/20 08:30 ALT 34 units/L (7-56) 12/14/20 08:30 Alkaline Phosphatase 89 units/L (35-129) 12/14/20 08:30 Total Protein 7.5 g/dL (6.3-8.2) 12/14/20 08:30 Albumin 3.7 g/dL (3.9-5) L 12/14/20 08:30 Albumin/Globulin Ratio 1.0 % 12/14/20 08:30 Triglycerides 137 mg/dL (2-149) 12/14/20 08:30 Cholesterol 232 mg/dL (50-199) H 12/14/20 08:30 LDL Cholesterol Direct 162 mg/dL (50-130) H 12/14/20 08:30 HDL Cholesterol 72 mg/dL (40-59) H 12/14/20 08:30 Cholesterol/HDL Ratio 3.22 % 12/14/20 08:30 TSH 0.771 mlU/mL (0.270-4.200) 12/14/20 08:30 Last Vital Signs Temp 98.4 F 12/15/20 19:14 Pulse 90 12/15/20 19:14 Resp 16 12/15/20 19:14 BP 176/116 12/15/20 19:14 Pulse Ox 98 12/15/20 19:14
[2020-12-16] MEDS: GABAPENTIN 300 MG CAP PO SCH ×3 (08:44→21:06)
[2020-12-16] MEDS: INSULIN LISPRO 100 UNIT/ML SUB-Q SCH ×4 (08:48→21:06)
[2020-12-16] MEDS: DONEPEZIL 10 MG TAB PO SCH (09:12)
[2020-12-16] MEDS: ARIPiprazole 5 MG TAB PO SCH (09:12)
[2020-12-16] MEDS: SERTRALINE 100 MG TAB PO SCH (09:12)
[2020-12-16] MEDS: traZODone 50 MG TAB PO SCH (21:06)
[2020-12-16] MEDS: INSULIN GLARGINE 100 UNITS/ML SUB-Q SCH (21:08)
--- NOTE | 2020-12-17 07:38 | Progress Note ---
Subjective Date of service: 12/17/20 Principal diagnosis: (1) Bipolar 2 disorder Subjective Comment: Per Psych Nurse: Received in the activity room interacting appropriately. A&OX4. Denies pain, SI, or HI. No acute distress observed and none reported. Will continue to monitor for safety. Psych Progress Patient reports speaking with his on phone yesterday, states conversation started out alanna but ended well. He reports discussing with about needing more outside therapy, giving each other some space to heal and amending issues with family. Patient denies feeling depressed today, denies SI, HI. Reason for continuing inpatient treatment: PLanning for safety discharge. REVIEW OF SYSTEMS Constitutional: Negative for weight loss ENT: Negative for stridor Respiratory: Negative for cough or hemoptysis All other systems reviewed and are negative MENTAL STATUS EXAMINATION General Appearance and Behavior: Age appropriate, good hygiene, wearing appropriate clothes, good eye contact, cooperative polite with questioning. Cooperation: Participating/engaged Psychomotor Behavior: unremarkable and within normal limits Mood: Good Affect and affective range: congruent with mood Thought Process: Fluent/Logical, Thought Content: Within reality, Speech: Normal volume, Regular rate and rhythm, Intellectual Functioning: Average Suicidal Ideation: Denies SI Homicidal Ideation: Denies HI Impulse Control: Unimpaired Insight and Judgment: Normal insight and judgment, Memory: Normal, Attention: Normal, Orientation: Alert, oriented, Assessment and Plan - Psychiatric problem (1) Bipolar 2 disorder Current Visit: Yes Status: Acute Treatment Plan Continue current medication Patient admitted for inpatient psychiatric evaluation, medication adjustment and close monitoring The patient's behavior, mood, sleep and appetite will be closely monitored. Patient enrolled in individual and group therapeutic sessions and encouraged to attend. Patient provided with a safe and structured environment. Patient's physical health needs will be addressed by the Hospitalist. Hospitalist Consulted Labs including CBC, CMP, Lipid profile and Hemoglobin A1C levels ordered for baseline reference Social Assessment will be completed and the Monitor Technician will work with patient and family to ensure a suitable and safe disposition Medication adjustment will be made as clinically indicated Usual Wellness Anabaptism/Preservation: - Start Trazodone 50 mg po QHS & 50 mg po QHS PRN between 10 PM & 2 AM for insomnia - Start Melatonin 5 mg po QHS to promote circadian rhythm - Start [place]-3 for brain health, reduce impulsivity, and as adjunctive treatment for mood disorder, continue upon discharge given overall benefits. - Start B1 prophylaxis with 200 mg po for 5 days The patient agreed on the treatment plan, understood the risk, benefit, alternative treatment, potential consequence of no treatment, and gave informed consent. Initial Certification Inpatient psych services: I certify that the inpatient psychiatric services are required for treatment that could reasonably be expected to improve the patient's condition. Estimated days: 4 Post hospital care: primary care provider, psychiatric provider Assessment and Plan - Patient Problems (1) Bipolar 2 disorder Current Visit: Yes Status: Acute Medications and Allergies Allergies Allergy/AdvReac Type Severity Reaction Status Date / Time No Known Allergies Allergy Verified 12/12/20 00:40 Home Medications Medication Instructions Recorded Confirmed Last Taken Type Gabapentin 300 mg PO TID 12/12/20 12/14/20 12/11/20 History Hydralazine HCl 50 mg PO TID 12/12/20 12/14/20 12/11/20 History Losartan [Cozaar] 100 mg PO DAILY 12/12/20 12/14/20 12/11/20 History Pantoprazole [Protonix] 40 mg PO DAILY 12/12/20 12/14/20 12/11/20 History Prazosin [Minipress] 2 mg PO HS 12/12/20 12/14/20 12/11/20 History Sertraline [Zoloft] 100 mg PO DAILY 12/12/20 12/14/20 12/12/20 14:51 History donepeziL [Aricept] 10 mg PO DAILY 12/12/20 12/14/20 12/11/20 History lisinopriL [Lisinopril] 10 mg PO DAILY 12/12/20 12/14/20 12/11/20 History Insulin Aspart 100 unit SQ UNK 12/14/20 12/15/20 Unknown History Insulin Glargine [Lantus VIAL] 10 unit SUB-Q QHS 12/14/20 12/14/20 Unknown History Insulin Glargine [Lantus VIAL] 10 units SUB-Q HS 12/14/20 12/14/20 Unknown History Active Meds: Active Medications Aripiprazole (Aripiprazole 5 Mg Tab) 5 mg PO QDAY [facility] Last Admin: 12/16/20 09:12 Dose: 5 mg Documented by: Donepezil HCl (Donepezil 10 Mg Tab) 10 mg PO DAILY [facility] Last Admin: 12/16/20 09:12 Dose: 10 mg Documented by: Gabapentin (Gabapentin 300 Mg Cap) 300 mg PO TID [facility] Last Admin: 12/16/20 21:06 Dose: 300 mg Documented by: Insulin Glargine (Insulin Glargine 100 Units/Ml) 10 units SUB-Q QHS [facility] Last Admin: 12/16/20 21:08 Dose: 10 units Documented by: Insulin Human Lispro (Insulin Lispro 100 Unit/Ml) 0 unit SUB-Q ACHS [facility]; Protocol Last Admin: 12/16/20 21:06 Dose: 1 unit Documented by: Sertraline HCl (Sertraline 100 Mg Tab) 100 mg PO DAILY [facility] Last Admin: 12/16/20 09:12 Dose: 100 mg Documented by: Trazodone HCl (Trazodone 50 Mg Tab) 50 mg PO QHS [facility] Last Admin: 12/16/20 21:06 Dose: 50 mg Documented by: Results - Results Labs/Vitals: Laboratory Last Values WBC 6.6 K/mm3 (4.5-11.0) 12/14/20 08:30 RBC 4.27 M/mm3 (3.65-5.03) 12/14/20 08:30 Hgb 13.4 gm/dl (11.8-15.2) 12/14/20 08:30 Hct 39.8 % (35.5-45.6) 12/14/20 08:30 MCV 93 fl (84-94) 12/14/20 08:30 MCH 32 pg (28-32) 12/14/20 08:30 MCHC 34 % (32-34) 12/14/20 08:30 RDW 13.7 % (13.2-15.2) 12/14/20 08:30 Plt Count 255 K/mm3 (140-440) 12/14/20 08:30 Lymph % (Auto) 34.2 % (13.4-35.0) 12/14/20 08:30 [place] % (Auto) 9.3 % (0.0-7.3) H 12/14/20 08:30 Eos % (Auto) 1.4 % (0.0-4.3) 12/14/20 08:30 Baso % (Auto) 0.6 % (0.0-1.8) 12/14/20 08:30 Lymph # (Auto) 2.2 K/mm3 (1.2-5.4) 12/14/20 08:30 [place] # (Auto) 0.6 K/mm3 (0.0-0.8) 12/14/20 08:30 Eos # (Auto) 0.1 K/mm3 (0.0-0.4) 12/14/20 08:30 Baso # (Auto) 0.0 K/mm3 (0.0-0.1) 12/14/20 08:30 Seg Neutrophils % 54.5 % (40.0-70.0) 12/14/20 08:30 Seg Neutrophils # 3.6 K/mm3 (1.8-7.7) 12/14/20 08:30 Sodium 140 mmol/L (137-145) 12/14/20 08:30 Potassium 3.8 mmol/L (3.6-5.0) 12/14/20 08:30 Chloride 103.6 mmol/L (98-107) 12/14/20 08:30 Carbon Dioxide 27 mmol/L (22-30) 12/14/20 08:30 Anion Gap 13 mmol/L 12/14/20 08:30 BUN 12 mg/dL (9-20) 12/14/20 08:30 Creatinine 0.9 mg/dL (0.8-1.3) 12/14/20 08:30 Estimated GFR > 60 ml/min 12/14/20 08:30 BUN/Creatinine Ratio 13 % 12/14/20 08:30 Glucose 136 mg/dL (75-100) H 12/14/20 08:30 POC Glucose 208 mg/dL (70-105) H 12/16/20 19:57 Hemoglobin A1c 6.9 % (4-6) H 12/14/20 08:30 Calcium 9.0 mg/dL (8.4-10.2) 12/14/20 08:30 Total Bilirubin 0.50 mg/dL (0.1-1.2) 12/14/20 08:30 AST 18 units/L (5-40) 12/14/20 08:30 ALT 34 units/L (7-56) 12/14/20 08:30 Alkaline Phosphatase 89 units/L (35-129) 12/14/20 08:30 Total Protein 7.5 g/dL (6.3-8.2) 12/14/20 08:30 Albumin 3.7 g/dL (3.9-5) L 12/14/20 08:30 Albumin/Globulin Ratio 1.0 % 12/14/20 08:30 Triglycerides 137 mg/dL (2-149) 12/14/20 08:30 Cholesterol 232 mg/dL (50-199) H 12/14/20 08:30 LDL Cholesterol Direct 162 mg/dL (50-130) H 12/14/20 08:30 HDL Cholesterol 72 mg/dL (40-59) H 12/14/20 08:30 Cholesterol/HDL Ratio 3.22 % 12/14/20 08:30 TSH 0.771 mlU/mL (0.270-4.200) 12/14/20 08:30 Last Vital Signs Temp 97.9 F 12/16/20 19:21 Pulse 94 H 12/16/20 19:21 Resp 16 12/16/20 19:21 BP 139/95 12/16/20 19:21 Pulse Ox 98 12/16/20 19:21
[2020-12-17] MEDS: DONEPEZIL 10 MG TAB PO SCH (09:50)
[2020-12-17] MEDS: GABAPENTIN 300 MG CAP PO SCH ×3 (09:50→21:38)
[2020-12-17] MEDS: ARIPiprazole 5 MG TAB PO SCH (09:50)
[2020-12-17] MEDS: SERTRALINE 100 MG TAB PO SCH (09:50)
[2020-12-17] MEDS: INSULIN LISPRO 100 UNIT/ML SUB-Q SCH ×4 (10:40→22:33)
--- NOTE | 2020-12-17 20:59 | Progress Note ---
Assessment and Plan - Patient Problems (1) HTN (hypertension) Current Visit: Yes Status: Acute Qualifiers: Hypertension type: essential hypertension Qualified Code(s): I10 - Essential (primary) hypertension Plan to address problem: Monitor blood pressure every shift, continue medical management (2) Diabetes Current Visit: Yes Status: Acute Plan to address problem: Consistent carbohydrate diet, (3) Anxiety Current Visit: Yes Status: Acute Plan to address problem: Supportive care, benzodiazepine therapy as clinically indicated (4) Dementia Current Visit: Yes Status: Acute Qualifiers: Alzheimer's disease onset: early-onset Plan to address problem: Supportive care, continue medical management, verbal prompting, verbal redirection History Interval history: 50 YO Male with Obesity, DMdiet controlled, HTN, Schizophrenia, Dementia, Gastric Cancer in remission, JON admitted to [facility] for Psychiatric Stabilization. Pt seen and evaluated in his room. No reported nursing events. No reported nursing events. Hospitalist Physical - Constitutional Vitals: Temp Pulse Resp BP Pulse Ox 98.4 F 92 H 18 136/90 96 12/17/20 09:54 12/17/20 09:54 12/17/20 09:54 12/17/20 09:54 12/17/20 09:54 General appearance: Present: no acute distress, obese - EENT Eyes: Present: PERRL, irregular pupil - Neck Neck: Present: supple - Respiratory Respiratory effort: normal Respiratory: bilateral: CTA - Cardiovascular Rhythm: regular Heart Sounds: Present: S1 & S2 - Extremities Extremities: no ischemia Peripheral Pulses: within normal limits - Abdominal General gastrointestinal: soft, non-tender, non-distended - Integumentary Integumentary: Present: clear, dry - Psychiatric Psychiatric: cooperative - Neurologic Neurologic: CNII-XII intact Results - Labs CBC & Chem 7: 12/14/20 08:30 12/14/20 08:30 Labs: Laboratory Last Values WBC 6.6 K/mm3 (4.5-11.0) 12/14/20 08:30 RBC 4.27 M/mm3 (3.65-5.03) 12/14/20 08:30 Hgb 13.4 gm/dl (11.8-15.2) 12/14/20 08:30 Hct 39.8 % (35.5-45.6) 12/14/20 08:30 MCV 93 fl (84-94) 12/14/20 08:30 MCH 32 pg (28-32) 12/14/20 08:30 MCHC 34 % (32-34) 12/14/20 08:30 RDW 13.7 % (13.2-15.2) 12/14/20 08:30 Plt Count 255 K/mm3 (140-440) 12/14/20 08:30 Lymph % (Auto) 34.2 % (13.4-35.0) 12/14/20 08:30 [place] % (Auto) 9.3 % (0.0-7.3) H 12/14/20 08:30 Eos % (Auto) 1.4 % (0.0-4.3) 12/14/20 08:30 Baso % (Auto) 0.6 % (0.0-1.8) 12/14/20 08:30 Lymph # (Auto) 2.2 K/mm3 (1.2-5.4) 12/14/20 08:30 [place] # (Auto) 0.6 K/mm3 (0.0-0.8) 12/14/20 08:30 Eos # (Auto) 0.1 K/mm3 (0.0-0.4) 12/14/20 08:30 Baso # (Auto) 0.0 K/mm3 (0.0-0.1) 12/14/20 08:30 Seg Neutrophils % 54.5 % (40.0-70.0) 12/14/20 08:30 Seg Neutrophils # 3.6 K/mm3 (1.8-7.7) 12/14/20 08:30 Sodium 140 mmol/L (137-145) 12/14/20 08:30 Potassium 3.8 mmol/L (3.6-5.0) 12/14/20 08:30 Chloride 103.6 mmol/L (98-107) 12/14/20 08:30 Carbon Dioxide 27 mmol/L (22-30) 12/14/20 08:30 Anion Gap 13 mmol/L 12/14/20 08:30 BUN 12 mg/dL (9-20) 12/14/20 08:30 Creatinine 0.9 mg/dL (0.8-1.3) 12/14/20 08:30 Estimated GFR > 60 ml/min 12/14/20 08:30 BUN/Creatinine Ratio 13 % 12/14/20 08:30 Glucose 136 mg/dL (75-100) H 12/14/20 08:30 POC Glucose 183 mg/dL (70-105) H 12/17/20 20:23 Hemoglobin A1c 6.9 % (4-6) H 12/14/20 08:30 Calcium 9.0 mg/dL (8.4-10.2) 12/14/20 08:30 Total Bilirubin 0.50 mg/dL (0.1-1.2) 12/14/20 08:30 AST 18 units/L (5-40) 12/14/20 08:30 ALT 34 units/L (7-56) 12/14/20 08:30 Alkaline Phosphatase 89 units/L (35-129) 12/14/20 08:30 Total Protein 7.5 g/dL (6.3-8.2) 12/14/20 08:30 Albumin 3.7 g/dL (3.9-5) L 12/14/20 08:30 Albumin/Globulin Ratio 1.0 % 12/14/20 08:30 Triglycerides 137 mg/dL (2-149) 12/14/20 08:30 Cholesterol 232 mg/dL (50-199) H 12/14/20 08:30 LDL Cholesterol Direct 162 mg/dL (50-130) H 12/14/20 08:30 HDL Cholesterol 72 mg/dL (40-59) H 12/14/20 08:30 Cholesterol/HDL Ratio 3.22 % 12/14/20 08:30 TSH 0.771 mlU/mL (0.270-4.200) 12/14/20 08:30 Vital/IV: Voiding Method Toilet Active Medications - Current Medications Current Medications: Generic Name Dose Route Start Last Admin Trade Name Freq PRN Reason Stop Dose Admin Aripiprazole 5 mg 12/14/20 10:00 12/17/20 09:50 Aripiprazole 5 Mg Tab PO 5 mg QDAY [facility] Administration Donepezil HCl 10 mg 12/14/20 11:00 12/17/20 09:50 Donepezil 10 Mg Tab PO 10 mg DAILY [facility] Administration Gabapentin 300 mg 12/14/20 14:00 12/17/20 14:05 Gabapentin 300 Mg Cap PO 300 mg TID [facility] Administration Insulin Glargine 10 units 12/15/20 22:00 12/16/20 21:08 Insulin Glargine 100 Units/Ml SUB-Q 10 units QHS [facility] Administration Insulin Human Lispro 0 unit 12/15/20 11:30 12/17/20 17:29 Insulin Lispro 100 Unit/Ml SUB-Q 3 unit ACHS [facility] Administration Protocol Sertraline HCl 100 mg 12/14/20 11:00 12/17/20 09:50 Sertraline 100 Mg Tab PO 100 mg DAILY [facility] Administration Trazodone HCl 50 mg 12/13/20 22:00 12/16/20 21:06 Trazodone 50 Mg Tab PO 50 mg QHS [facility] Administration
--- NOTE | 2020-12-17 20:59 | Progress Note ---
Assessment and Plan - Patient Problems (1) HTN (hypertension) Current Visit: Yes Status: Acute Qualifiers: Hypertension type: essential hypertension Qualified Code(s): I10 - Essential (primary) hypertension Plan to address problem: Monitor blood pressure every shift, continue medical management (2) Diabetes Current Visit: Yes Status: Acute Plan to address problem: Consistent carbohydrate diet, (3) Anxiety Current Visit: Yes Status: Acute Plan to address problem: Supportive care, benzodiazepine therapy as clinically indicated (4) Dementia Current Visit: Yes Status: Acute Qualifiers: Alzheimer's disease onset: early-onset Plan to address problem: Supportive care, continue medical management, verbal prompting, verbal redirection History Interval history: 50 YO Male with Obesity, DMdiet controlled, HTN, Schizophrenia, Dementia, Gastric Cancer in remission, JNO admitted to [facility] for Psychiatric Stabilization. Pt seen and evaluated in his room. No reported nursing events. No reported nursing events. Hospitalist Physical - Constitutional Vitals: Temp Pulse Resp BP Pulse Ox 98.4 F 92 H 18 136/90 96 12/17/20 09:54 12/17/20 09:54 12/17/20 09:54 12/17/20 09:54 12/17/20 09:54 General appearance: Present: no acute distress, obese - EENT Eyes: Present: PERRL, EOM intact ENT: hearing intact - Neck Neck: Present: supple - Respiratory Respiratory: bilateral: CTA - Cardiovascular Rhythm: regular Heart Sounds: Present: S1 & S2 - Extremities Extremities: no ischemia Peripheral Pulses: within normal limits - Abdominal General gastrointestinal: soft, non-tender, non-distended - Integumentary Integumentary: Present: clear, dry - Psychiatric Psychiatric: cooperative - Neurologic Neurologic: CNII-XII intact Results - Labs CBC & Chem 7: 12/14/20 08:30 12/14/20 08:30 Labs: Laboratory Last Values WBC 6.6 K/mm3 (4.5-11.0) 12/14/20 08:30 RBC 4.27 M/mm3 (3.65-5.03) 12/14/20 08:30 Hgb 13.4 gm/dl (11.8-15.2) 12/14/20 08:30 Hct 39.8 % (35.5-45.6) 12/14/20 08:30 MCV 93 fl (84-94) 12/14/20 08:30 MCH 32 pg (28-32) 12/14/20 08:30 MCHC 34 % (32-34) 12/14/20 08:30 RDW 13.7 % (13.2-15.2) 12/14/20 08:30 Plt Count 255 K/mm3 (140-440) 12/14/20 08:30 Lymph % (Auto) 34.2 % (13.4-35.0) 12/14/20 08:30 [place] % (Auto) 9.3 % (0.0-7.3) H 12/14/20 08:30 Eos % (Auto) 1.4 % (0.0-4.3) 12/14/20 08:30 Baso % (Auto) 0.6 % (0.0-1.8) 12/14/20 08:30 Lymph # (Auto) 2.2 K/mm3 (1.2-5.4) 12/14/20 08:30 [place] # (Auto) 0.6 K/mm3 (0.0-0.8) 12/14/20 08:30 Eos # (Auto) 0.1 K/mm3 (0.0-0.4) 12/14/20 08:30 Baso # (Auto) 0.0 K/mm3 (0.0-0.1) 12/14/20 08:30 Seg Neutrophils % 54.5 % (40.0-70.0) 12/14/20 08:30 Seg Neutrophils # 3.6 K/mm3 (1.8-7.7) 12/14/20 08:30 Sodium 140 mmol/L (137-145) 12/14/20 08:30 Potassium 3.8 mmol/L (3.6-5.0) 12/14/20 08:30 Chloride 103.6 mmol/L (98-107) 12/14/20 08:30 Carbon Dioxide 27 mmol/L (22-30) 12/14/20 08:30 Anion Gap 13 mmol/L 12/14/20 08:30 BUN 12 mg/dL (9-20) 12/14/20 08:30 Creatinine 0.9 mg/dL (0.8-1.3) 12/14/20 08:30 Estimated GFR > 60 ml/min 12/14/20 08:30 BUN/Creatinine Ratio 13 % 12/14/20 08:30 Glucose 136 mg/dL (75-100) H 12/14/20 08:30 POC Glucose 183 mg/dL (70-105) H 12/17/20 20:23 Hemoglobin A1c 6.9 % (4-6) H 12/14/20 08:30 Calcium 9.0 mg/dL (8.4-10.2) 12/14/20 08:30 Total Bilirubin 0.50 mg/dL (0.1-1.2) 12/14/20 08:30 AST 18 units/L (5-40) 12/14/20 08:30 ALT 34 units/L (7-56) 12/14/20 08:30 Alkaline Phosphatase 89 units/L (35-129) 12/14/20 08:30 Total Protein 7.5 g/dL (6.3-8.2) 12/14/20 08:30 Albumin 3.7 g/dL (3.9-5) L 12/14/20 08:30 Albumin/Globulin Ratio 1.0 % 12/14/20 08:30 Triglycerides 137 mg/dL (2-149) 12/14/20 08:30 Cholesterol 232 mg/dL (50-199) H 12/14/20 08:30 LDL Cholesterol Direct 162 mg/dL (50-130) H 12/14/20 08:30 HDL Cholesterol 72 mg/dL (40-59) H 12/14/20 08:30 Cholesterol/HDL Ratio 3.22 % 12/14/20 08:30 TSH 0.771 mlU/mL (0.270-4.200) 12/14/20 08:30 Vital/IV: Voiding Method Toilet Active Medications - Current Medications Current Medications: Generic Name Dose Route Start Last Admin Trade Name Freq PRN Reason Stop Dose Admin Aripiprazole 5 mg 12/14/20 10:00 12/17/20 09:50 Aripiprazole 5 Mg Tab PO 5 mg QDAY [facility] Administration Donepezil HCl 10 mg 12/14/20 11:00 12/17/20 09:50 Donepezil 10 Mg Tab PO 10 mg DAILY [facility] Administration Gabapentin 300 mg 12/14/20 14:00 12/17/20 14:05 Gabapentin 300 Mg Cap PO 300 mg TID [facility] Administration Insulin Glargine 10 units 12/15/20 22:00 12/16/20 21:08 Insulin Glargine 100 Units/Ml SUB-Q 10 units QHS [facility] Administration Insulin Human Lispro 0 unit 12/15/20 11:30 12/17/20 17:29 Insulin Lispro 100 Unit/Ml SUB-Q 3 unit ACHS [facility] Administration Protocol Sertraline HCl 100 mg 12/14/20 11:00 12/17/20 09:50 Sertraline 100 Mg Tab PO 100 mg DAILY [facility] Administration Trazodone HCl 50 mg 12/13/20 22:00 12/16/20 21:06 Trazodone 50 Mg Tab PO 50 mg QHS [facility] Administration
[2020-12-17] MEDS: traZODone 50 MG TAB PO SCH (21:38)
[2020-12-17] MEDS: INSULIN GLARGINE 100 UNITS/ML SUB-Q SCH (22:41)
--- NOTE | 2020-12-18 08:00 | Progress Note ---
Subjective Date of service: 12/18/20 Principal diagnosis: (1) Bipolar 2 disorder Subjective Comment: Per Psych Nurse: pt is compliant with medication, no complaint voiced, slept all night, will continue to monitor for safety Psych Progress Patient seen this AM, denies having any acute complaints, states he is looking forward to discharge whenever its ready, informed patient SW is working on outpt program. Patient denies SI, HI. Reason for continuing inpatient treatment: Panning for safety discharge. REVIEW OF SYSTEMS Constitutional: Negative for weight loss ENT: Negative for stridor Respiratory: Negative for cough or hemoptysis All other systems reviewed and are negative MENTAL STATUS EXAMINATION General Appearance and Behavior: Age appropriate, good hygiene, wearing appropriate clothes, good eye contact, cooperative polite with questioning. Cooperation: Participating/engaged Psychomotor Behavior: unremarkable and within normal limits Mood: Good Affect and affective range: congruent with mood Thought Process: Fluent/Logical, Thought Content: Within reality, Speech: Normal volume, Regular rate and rhythm, Intellectual Functioning: Average Suicidal Ideation: Denies SI Homicidal Ideation: Denies HI Impulse Control: Unimpaired Insight and Judgment: Normal insight and judgment, Memory: Normal, Attention: Normal, Orientation: Alert, oriented, Assessment and Plan - Psychiatric problem (1) Bipolar 2 disorder Current Visit: Yes Status: Acute Treatment Plan Continue current medication. Safety discharge. Patient admitted for inpatient psychiatric evaluation, medication adjustment and close monitoring The patient's behavior, mood, sleep and appetite will be closely monitored. Patient enrolled in individual and group therapeutic sessions and encouraged to attend. Patient provided with a safe and structured environment. Patient's physical health needs will be addressed by the Hospitalist. Hospitalist Consulted Labs including CBC, CMP, Lipid profile and Hemoglobin A1C levels ordered for baseline reference Social Assessment will be completed and the Pr Manager will work with patient and family to ensure a suitable and safe disposition Medication adjustment will be made as clinically indicated Usual Wellness Orthodox/Preservation: - Start Trazodone 50 mg po QHS & 50 mg po QHS PRN between 10 PM & 2 AM for insomnia - Start Melatonin 5 mg po QHS to promote circadian rhythm - Start [place]-3 for brain health, reduce impulsivity, and as adjunctive treatment for mood disorder, continue upon discharge given overall benefits. - Start B1 prophylaxis with 200 mg po for 5 days The patient agreed on the treatment plan, understood the risk, benefit, alternative treatment, potential consequence of no treatment, and gave informed consent. Initial Certification Inpatient psych services: I certify that the inpatient psychiatric services are required for treatment that could reasonably be expected to improve the patient's condition. Estimated days: 2 Post hospital care: primary care provider, psychiatric provider Assessment and Plan - Patient Problems (1) Bipolar 2 disorder Current Visit: Yes Status: Acute Medications and Allergies Allergies Allergy/AdvReac Type Severity Reaction Status Date / Time No Known Allergies Allergy Verified 12/12/20 00:40 Home Medications Medication Instructions Recorded Confirmed Last Taken Type Gabapentin 300 mg PO TID 12/12/20 12/14/20 12/11/20 History Hydralazine HCl 50 mg PO TID 12/12/20 12/14/20 12/11/20 History Losartan [Cozaar] 100 mg PO DAILY 12/12/20 12/14/20 12/11/20 History Pantoprazole [Protonix] 40 mg PO DAILY 12/12/20 12/14/20 12/11/20 History Prazosin [Minipress] 2 mg PO HS 12/12/20 12/14/20 12/11/20 History donepeziL [Aricept] 10 mg PO DAILY 12/12/20 12/14/20 12/11/20 History lisinopriL [Lisinopril] 10 mg PO DAILY 12/12/20 12/14/20 12/11/20 History Insulin Aspart 100 unit SQ UNK 12/14/20 12/15/20 Unknown History Insulin Glargine [Lantus VIAL] 10 unit SUB-Q QHS 12/14/20 12/14/20 Unknown History Insulin Glargine [Lantus VIAL] 10 units SUB-Q HS 12/14/20 12/14/20 Unknown History ARIPiprazole 5 mg PO QDAY #30 tablet 12/17/20 Unknown Rx Sertraline [Zoloft] 100 mg PO DAILY #30 tab 12/17/20 Unknown Rx Active Meds: Active Medications Aripiprazole (Aripiprazole 5 Mg Tab) 5 mg PO QDAY [facility] Last Admin: 12/17/20 09:50 Dose: 5 mg Documented by: Donepezil HCl (Donepezil 10 Mg Tab) 10 mg PO DAILY [facility] Last Admin: 12/17/20 09:50 Dose: 10 mg Documented by: Gabapentin (Gabapentin 300 Mg Cap) 300 mg PO TID [facility] Last Admin: 12/17/20 21:38 Dose: 300 mg Documented by: Insulin Glargine (Insulin Glargine 100 Units/Ml) 10 units SUB-Q QHS [facility] Last Admin: 12/17/20 22:41 Dose: 10 units Documented by: Insulin Human Lispro (Insulin Lispro 100 Unit/Ml) 0 unit SUB-Q ACHS [facility]; Protocol Last Admin: 12/17/20 22:33 Dose: 2 unit Documented by: Sertraline HCl (Sertraline 100 Mg Tab) 100 mg PO DAILY [facility] Last Admin: 12/17/20 09:50 Dose: 100 mg Documented by: Trazodone HCl (Trazodone 50 Mg Tab) 50 mg PO QHS [facility] Last Admin: 12/17/20 21:38 Dose: 50 mg Documented by: Results - Results Labs/Vitals: Laboratory Last Values WBC 6.6 K/mm3 (4.5-11.0) 12/14/20 08:30 RBC 4.27 M/mm3 (3.65-5.03) 12/14/20 08:30 Hgb 13.4 gm/dl (11.8-15.2) 12/14/20 08:30 Hct 39.8 % (35.5-45.6) 12/14/20 08:30 MCV 93 fl (84-94) 12/14/20 08:30 MCH 32 pg (28-32) 12/14/20 08:30 MCHC 34 % (32-34) 12/14/20 08:30 RDW 13.7 % (13.2-15.2) 12/14/20 08:30 Plt Count 255 K/mm3 (140-440) 12/14/20 08:30 Lymph % (Auto) 34.2 % (13.4-35.0) 12/14/20 08:30 [place] % (Auto) 9.3 % (0.0-7.3) H 12/14/20 08:30 Eos % (Auto) 1.4 % (0.0-4.3) 12/14/20 08:30 Baso % (Auto) 0.6 % (0.0-1.8) 12/14/20 08:30 Lymph # (Auto) 2.2 K/mm3 (1.2-5.4) 12/14/20 08:30 [place] # (Auto) 0.6 K/mm3 (0.0-0.8) 12/14/20 08:30 Eos # (Auto) 0.1 K/mm3 (0.0-0.4) 12/14/20 08:30 Baso # (Auto) 0.0 K/mm3 (0.0-0.1) 12/14/20 08:30 Seg Neutrophils % 54.5 % (40.0-70.0) 12/14/20 08:30 Seg Neutrophils # 3.6 K/mm3 (1.8-7.7) 12/14/20 08:30 Sodium 140 mmol/L (137-145) 12/14/20 08:30 Potassium 3.8 mmol/L (3.6-5.0) 12/14/20 08:30 Chloride 103.6 mmol/L (98-107) 12/14/20 08:30 Carbon Dioxide 27 mmol/L (22-30) 12/14/20 08:30 Anion Gap 13 mmol/L 12/14/20 08:30 BUN 12 mg/dL (9-20) 12/14/20 08:30 Creatinine 0.9 mg/dL (0.8-1.3) 12/14/20 08:30 Estimated GFR > 60 ml/min 12/14/20 08:30 BUN/Creatinine Ratio 13 % 12/14/20 08:30 Glucose 136 mg/dL (75-100) H 12/14/20 08:30 POC Glucose 183 mg/dL (70-105) H 12/17/20 20:23 Hemoglobin A1c 6.9 % (4-6) H 12/14/20 08:30 Calcium 9.0 mg/dL (8.4-10.2) 12/14/20 08:30 Total Bilirubin 0.50 mg/dL (0.1-1.2) 12/14/20 08:30 AST 18 units/L (5-40) 12/14/20 08:30 ALT 34 units/L (7-56) 12/14/20 08:30 Alkaline Phosphatase 89 units/L (35-129) 12/14/20 08:30 Total Protein 7.5 g/dL (6.3-8.2) 12/14/20 08:30 Albumin 3.7 g/dL (3.9-5) L 12/14/20 08:30 Albumin/Globulin Ratio 1.0 % 12/14/20 08:30 Triglycerides 137 mg/dL (2-149) 12/14/20 08:30 Cholesterol 232 mg/dL (50-199) H 12/14/20 08:30 LDL Cholesterol Direct 162 mg/dL (50-130) H 12/14/20 08:30 HDL Cholesterol 72 mg/dL (40-59) H 12/14/20 08:30 Cholesterol/HDL Ratio 3.22 % 12/14/20 08:30 TSH 0.771 mlU/mL (0.270-4.200) 12/14/20 08:30 Last Vital Signs Temp 98.7 F 12/17/20 19:58 Pulse 89 12/17/20 22:30 Resp 15 12/17/20 19:58 BP 121/87 12/17/20 22:30 Pulse Ox 96 12/17/20 19:58
[2020-12-18 09:05] VITALS: BP 151/98
[2020-12-18] MEDS: GABAPENTIN 300 MG CAP PO SCH ×2 (09:22→14:00)
[2020-12-18] MEDS: INSULIN LISPRO 100 UNIT/ML SUB-Q SCH ×2 (09:23→12:27)
[2020-12-18] MEDS: SERTRALINE 100 MG TAB PO SCH (09:23)
[2020-12-18] MEDS: ARIPiprazole 5 MG TAB PO SCH (09:23)
[2020-12-18] MEDS: DONEPEZIL 10 MG TAB PO SCH (09:23)
--- NOTE | 2020-12-18 15:34 | Discharge Summary ---
Providers - Providers Date of Admission: 12/14/20 02:28 Date of discharge: 12/18/20 Attending physician: JONATHAN MALIK MD 12/13/20 21:24 Consult to Physician [CONS] Routine Comment: Consulting Provider: MIKIE PENALOZA Physician Instructions: Reason For Exam: manage medical conditions Primary care physician: [employer] Hospitalization Reason for admission: MDD Condition: Good Hospital course: The patient was provided inpatient psychiatric treatment with safe and supportive environment, group/individual therapy, psychiatric medication, medication adjustment, adverse effect monitor, medical evaluation, medical treatment, social service assessment, social support meeting, placement assessment and psycho-education. The patients mood, cognition, behavior, motivation, compliance to treatment and appreciation on family/social support are improved and stabilized. At the time of discharge, the patient had no suicidal ideas, no homicidal ideas, no aggressive thoughts, no endangering behavior and no debilitating adverse effects. The patient agreed on the treatment plan, understood the risk, benefit, alternative treatment, potential consequence of no treatment, and gave informed consent. Over 35 minutes spent for discharge process, education and behavioral counselling. Disposition: DC-01 TO HOME OR SELFCARE Allergies/Adverse Reactions: Allergies No Known Allergies Allergy (Verified 12/12/20 00:40) Vital Signs: Last Vital Signs Temp 98.1 F 12/18/20 10:00 Pulse 87 12/18/20 10:00 Resp 16 12/18/20 10:00 BP 151/98 12/18/20 10:00 Pulse Ox 98 12/18/20 10:00 Last Lab: Laboratory Last Values WBC 6.6 K/mm3 (4.5-11.0) 12/14/20 08:30 RBC 4.27 M/mm3 (3.65-5.03) 12/14/20 08:30 Hgb 13.4 gm/dl (11.8-15.2) 12/14/20 08:30 Hct 39.8 % (35.5-45.6) 12/14/20 08:30 MCV 93 fl (84-94) 12/14/20 08:30 MCH 32 pg (28-32) 12/14/20 08:30 MCHC 34 % (32-34) 12/14/20 08:30 RDW 13.7 % (13.2-15.2) 12/14/20 08:30 Plt Count 255 K/mm3 (140-440) 12/14/20 08:30 Lymph % (Auto) 34.2 % (13.4-35.0) 12/14/20 08:30 [place] % (Auto) 9.3 % (0.0-7.3) H 12/14/20 08:30 Eos % (Auto) 1.4 % (0.0-4.3) 12/14/20 08:30 Baso % (Auto) 0.6 % (0.0-1.8) 12/14/20 08:30 Lymph # (Auto) 2.2 K/mm3 (1.2-5.4) 12/14/20 08:30 [place] # (Auto) 0.6 K/mm3 (0.0-0.8) 12/14/20 08:30 Eos # (Auto) 0.1 K/mm3 (0.0-0.4) 12/14/20 08:30 Baso # (Auto) 0.0 K/mm3 (0.0-0.1) 12/14/20 08:30 Seg Neutrophils % 54.5 % (40.0-70.0) 12/14/20 08:30 Seg Neutrophils # 3.6 K/mm3 (1.8-7.7) 12/14/20 08:30 Sodium 140 mmol/L (137-145) 12/14/20 08:30 Potassium 3.8 mmol/L (3.6-5.0) 12/14/20 08:30 Chloride 103.6 mmol/L (98-107) 12/14/20 08:30 Carbon Dioxide 27 mmol/L (22-30) 12/14/20 08:30 Anion Gap 13 mmol/L 12/14/20 08:30 BUN 12 mg/dL (9-20) 12/14/20 08:30 Creatinine 0.9 mg/dL (0.8-1.3) 12/14/20 08:30 Estimated GFR > 60 ml/min 12/14/20 08:30 BUN/Creatinine Ratio 13 % 12/14/20 08:30 Glucose 136 mg/dL (75-100) H 12/14/20 08:30 POC Glucose 140 mg/dL (70-105) H 12/18/20 11:50 Hemoglobin A1c 6.9 % (4-6) H 12/14/20 08:30 Calcium 9.0 mg/dL (8.4-10.2) 12/14/20 08:30 Total Bilirubin 0.50 mg/dL (0.1-1.2) 12/14/20 08:30 AST 18 units/L (5-40) 12/14/20 08:30 ALT 34 units/L (7-56) 12/14/20 08:30 Alkaline Phosphatase 89 units/L (35-129) 12/14/20 08:30 Total Protein 7.5 g/dL (6.3-8.2) 12/14/20 08:30 Albumin 3.7 g/dL (3.9-5) L 12/14/20 08:30 Albumin/Globulin Ratio 1.0 % 12/14/20 08:30 Triglycerides 137 mg/dL (2-149) 12/14/20 08:30 Cholesterol 232 mg/dL (50-199) H 12/14/20 08:30 LDL Cholesterol Direct 162 mg/dL (50-130) H 12/14/20 08:30 HDL Cholesterol 72 mg/dL (40-59) H 12/14/20 08:30 Cholesterol/HDL Ratio 3.22 % 12/14/20 08:30 TSH 0.771 mlU/mL (0.270-4.200) 12/14/20 08:30 - Discharge Diagnoses (1) Bipolar 2 disorder Status: Acute Core Measure Documentation - Palliative Care Palliative Care/ Comfort Measures: Not Applicable - Core Measures Any of the following diagnoses?: none Exam - Constitutional Vitals: Temp Pulse Resp BP Pulse Ox 98.1 F 87 16 151/98 98 12/18/20 10:00 12/18/20 10:00 12/18/20 10:00 12/18/20 10:00 12/18/20 10:00 General appearance: Present: no acute distress - EENT Eyes: Present: PERRL, EOM intact ENT: hearing intact, clear oral mucosa - Neck Neck: Present: supple, normal ROM - Respiratory Respiratory effort: normal - Abdominal General gastrointestinal: Present: deferred Male genitourinary: Present: deferred - Integumentary Integumentary: Present: clear, warm Plan Activity: no restrictions Care Plan Goals: Goals: Maintain good and stable mental health. Plan of Treatment: The patient should be compliant with medications, not to use drugs and not to drink alcohol. The patient understands that if suicidal ideas, homicidal ideas, or any endangering thoughts arise, the patient should immediately seek for emergent assistance including but not limited to crisis hot line and emergency room. Follow up with outpatient Psychiatrist and PCP within 7 - 14 days of discharge. Follow up with: PRIMARY CARE,MD [Primary Care Provider] - 7 Days Prescriptions: ARIPiprazole 5 mg PO QDAY #30 tablet Sertraline [Zoloft] 100 mg PO DAILY #30 tab
== END 2020-12-18 15:52 | disposition home or self-care (01) | DRG 885 ==
LOC: 3A 16:52 → UNDOADMIN 16:52 → 5A 12-14 02:28
PROVIDERS: ADMIT Psychiatry & Neurology Psychiatry; ATTEND Psychiatry & Neurology Psychiatry
DX: F31.81 Bipolar II disorder (principal); F20.9 Schizophrenia, unspecified; F41.9 Anxiety disorder, unspecified; E11.9 Type 2 diabetes mellitus without complications; I10 Essential (primary) hypertension; F03.90 Unspecified dementia, unspecified severity, without behavioral disturbance, psychotic disturbance, mood disturbance, and anxiety; E66.9 Obesity, unspecified; Z56.0 Unemployment, unspecified; Z79.4 Long term (current) use of insulin; Z85.028 Personal history of other malignant neoplasm of stomach; Z83.3 Family history of diabetes mellitus; Z82.49 Family history of ischemic heart disease and other diseases of the circulatory system
CPT/HCPCS: 36415; 80048; 80053; 80061; 80307; 80320; 81001; 82962; 83036; 84443; 85025; G0378; G0480; J1815

== ENCOUNTER 2021-12-09 19:43 | Emergency (ER) | payer MEDICARE ==
[2021-12-09 20:42] VITALS: BP 144/85
[2021-12-10] MEDS ORDERED: SULFAMETHOXAZOLE/TRIMETHOPRIM 800/160MG DS TAB PO ONE (03:20)
[2021-12-10] MEDS ORDERED: LIDOCAINE (1%) 10 MG/1 ML VIAL 20 ML MDV INFILTRATI ONE (03:20)
[2021-12-10] MEDS ORDERED: CLINDAMYCIN 300 MG CAP PO ONE (03:20)
[2021-12-10] MEDS ORDERED: IBUPROFEN 600 MG TAB PO ONE (03:21)
[2021-12-10] MEDS ORDERED: ACETAMINOPHEN 500 MG TAB PO ONE (03:21)
--- NOTE | 2021-12-10 03:55 | Emergency Department Report ---
ED Extremity Problem HPI - General Chief complaint: Extremity Problem,Nontraumatic Stated complaint: LT FOOT SWELLING Source: patient Mode of arrival: Ambulatory Limitations: No Limitations - History of Present Illness Initial comments: Patient is a 51-year-old -[place] man with a history of schizophrenia, hypertension, khf-xenwoxv-khfbtchnj diabetes, seizures and dementia who presents to the ED with complaint of acute onset persistent painful distal left great toe pain and swelling with mild erythematous rash in left foot swelling after he aggressively cut his distal left great toe nail about 2 weeks ago. Patient stated that the pain and swelling have been persistent and especially worse in the last 1 week. Patient denies fever, chills, fall, nausea and vomiting, numbness and tingling or weakness of left leg, chest pain or shortness of breath, low back pain or headache. MD Complaint: extremity pain (Left foot pain and swelling, distal left great toe pain with swelling mild erythematous rash) -: Gradual, month(s) (2) Location: left, toe (Great toe pain and swelling), other (Left foot swelling and pain) History of Same: No -: No myalgia, Yes arthralgia (Left foot and great toe pain ), No fever, No associated dyspnea, No associated chest pain Severity scale (0 -10): 7 Quality: aching, sharp Consistency: constant Improves with: nothing Worsens with: weight bearing, walking, exertion, palpation Associated Symptoms: denies other symptoms, arthralgias (Left foot and great toe pain), rash (Mild erythematous rash on distal left great toe). denies: chest pain, shortness of breath, fever, myalgias - Related Data Home Medications Medication Instructions Recorded Confirmed Last Taken donepeziL [Aricept] 10 mg PO DAILY 12/12/20 08/13/21 12/11/20 AtorvaSTATin [Lipitor] 20 mg PO QHS 08/16/21 08/16/21 Unknown Previous Rx's Medication Instructions Recorded Last Taken Type Sertraline [Zoloft] 100 mg PO DAILY #30 tab 12/17/20 Unknown Rx ALBUTEROL NEB's [Proventil 0.083% 2.5 mg IH Q4HRT PRN nebu 08/22/21 Unknown Rx NEBS] Epoetin Kevin-Epbx 10,000 Unit 10,000 unit IV PEREZ PRN vial 08/22/21 Unknown Rx [Retacrit] Insulin Glargine [Lantus VIAL] 55 units SUB-Q QAMDIAB units 08/22/21 Unknown Rx Insulin Regular, Human [HumuLIN R] 15 units SUB-Q ACHS units 08/22/21 Unknown Rx Metoprolol [Lopressor TAB] 50 mg PO BID tablet 08/22/21 Unknown Rx Pantoprazole [Protonix TAB] 40 mg PO DAILY tablet 08/22/21 Unknown Rx Sennosides Tab [Senokot] 17.2 mg PO QHS tablet 08/22/21 Unknown Rx amLODIPine 10 mg PO DAILY tablet 08/22/21 Unknown Rx levETIRAcetam [Keppra TAB] 250 mg PO DAILY tablet 08/22/21 Unknown Rx Acetaminophen [Tylenol] 500 mg PO Q6HR PRN #30 tablet 12/10/21 Unknown Rx Naproxen 500 mg PO Q12H PRN #24 tab 12/10/21 Unknown Rx Sulfamethoxazole/Trimethoprim 1 each PO Q12H #20 tab 12/10/21 Unknown Rx [Bactrim DS TAB] Allergies Allergy/AdvReac Type Severity Reaction Status Date / Time No Known Allergies Allergy Verified 08/16/21 14:17 ED Review of Systems ROS: Stated complaint: LT FOOT SWELLING Other details as noted in HPI Constitutional: denies: no symptoms reported, chills, fever Eyes: denies: eye pain, eye discharge, vision change ENT: denies: ear pain, throat pain Respiratory: denies: cough, shortness of breath, wheezing Cardiovascular: denies: chest pain, palpitations Endocrine: no symptoms reported Gastrointestinal: denies: abdominal pain, nausea, diarrhea Genitourinary: denies: urgency, dysuria Musculoskeletal: joint swelling (Swollen, painful left great toe and foot ), arthralgia (Left foot and great toe pain with swelling). denies: back pain Skin: rash (Swollen, mild erythematous painful rash on distal left great toe), change in color. denies: lesions Neurological: denies: headache, weakness, paresthesias Psychiatric: denies: anxiety, depression Hematological/Lymphatic: denies: easy bleeding, easy bruising ED Past Medical Hx - Past Medical History Hx Hypertension: Yes Hx Congestive Heart Failure: No Hx Diabetes: Yes Hx Renal Disease: No Hx Arthritis: No Hx Seizures: Yes Hx Psychiatric Treatment: Yes (schizo anxiety) Hx Asthma: No Hx COPD: No Hx Dementia: No Additional medical history: dementia - Surgical History Hx Cholecystectomy: No Hx Appendectomy: No Additional Surgical History: gastric. right ankle. hernia with mesh - Social History Smoking Status: Never Smoker Substance Use Type: None - Medications Home Medications: Home Medications Medication Instructions Recorded Confirmed Last Taken Type donepeziL [Aricept] 10 mg PO DAILY 12/12/20 08/13/21 12/11/20 History Sertraline [Zoloft] 100 mg PO DAILY #30 tab 12/17/20 08/13/21 Unknown Rx AtorvaSTATin [Lipitor] 20 mg PO QHS 08/16/21 08/16/21 Unknown History ALBUTEROL NEB's [Proventil 0.083% 2.5 mg IH Q4HRT PRN nebu 08/22/21 Unknown Rx NEBS] Epoetin Kevin-Epbx 10,000 Unit 10,000 unit IV PEREZ PRN vial 08/22/21 Unknown Rx [Retacrit] Insulin Glargine [Lantus VIAL] 55 units SUB-Q QAMDIAB units 08/22/21 Unknown Rx Insulin Regular, Human [HumuLIN R] 15 units SUB-Q ACHS units 08/22/21 Unknown Rx Metoprolol [Lopressor TAB] 50 mg PO BID tablet 08/22/21 Unknown Rx Pantoprazole [Protonix TAB] 40 mg PO DAILY tablet 08/22/21 Unknown Rx Sennosides Tab [Senokot] 17.2 mg PO QHS tablet 08/22/21 Unknown Rx amLODIPine 10 mg PO DAILY tablet 08/22/21 Unknown Rx levETIRAcetam [Keppra TAB] 250 mg PO DAILY tablet 08/22/21 Unknown Rx Acetaminophen [Tylenol] 500 mg PO Q6HR PRN #30 tablet 12/10/21 Unknown Rx Naproxen 500 mg PO Q12H PRN #24 tab 12/10/21 Unknown Rx Sulfamethoxazole/Trimethoprim 1 each PO Q12H #20 tab 12/10/21 Unknown Rx [Bactrim DS TAB] ED Physical Exam - General Limitations: No Limitations General appearance: alert, in no apparent distress - Head Head exam: Present: atraumatic, normocephalic, normal inspection - Eye Eye exam: Present: normal appearance, PERRL, EOMI Pupils: Present: normal accommodation - ENT ENT exam: Present: normal exam, normal orophraynx, mucous membranes moist, TM's normal bilaterally, normal external ear exam - Neck Neck exam: Present: normal inspection, full ROM. Absent: tenderness - Respiratory Respiratory exam: Present: normal lung sounds bilaterally. Absent: respiratory distress, wheezes, rales, rhonchi, chest wall tenderness, accessory muscle use, decreased breath sounds, prolonged expiratory - Cardiovascular Cardiovascular Exam: Present: regular rate, normal rhythm, normal heart sounds. Absent: systolic murmur, diastolic murmur, rubs, gallop - GI/Abdominal GI/Abdominal exam: Present: soft, normal bowel sounds. Absent: tenderness, guarding, rebound, hyperactive bowel sounds, hypoactive bowel sounds, organomegaly, mass - Extremities Exam Extremities exam: Present: normal inspection, full ROM, tenderness (Palpable distal left great toe tenderness due to a swollen mild erythematous maculopapular rash with fluctuance; mildly tender left foot), normal capillary refill, joint swelling. Absent: pedal edema, calf tenderness - Back Exam Back exam: Present: normal inspection, full ROM. Absent: tenderness, CVA tenderness (R), muscle spasm, paraspinal tenderness, vertebral tenderness - Neurological Exam Neurological exam: Present: alert, oriented X3, CN II-XII intact, normal gait, reflexes normal - Psychiatric Psychiatric exam: Present: normal affect, normal mood - Skin Skin exam: Present: warm, dry, intact, rash (Swollen, mild erythematous maculopapular fluctuant rash on distal dorsal left great toe with tenderness), erythema ED Course Vital Signs 12/09/21 20:24 Temperature 99.0 F Pulse Rate 91 H Respiratory 18 Rate Blood Pressure 144/85 O2 Sat by Pulse 97 Oximetry - I & D Left Distal Toe Type of Procedure: Simple Site: distal left great toe Blade Size: 11 I & D Procedure: betadine prep, sterile drapes applied, sterile dressing applied, gauze wick placed Progress: The left great toe was cleaned extensively with normal saline and Betadine solutions. Lidocaine 1% solution was used as anesthetic. When anesthesia was fully achieved, the wound was incised and drained using with #11 scalpel blade. Copious thick purulent discharge drained from the wound. The wound was then extensively debrided with normal saline, breaking flocculation's. The wound was then packed with sterile 4 x 4 gauze and dressed appropriately with 4 x 4 gauze and Kerlix. Patient tolerated the procedure well. ED Medical Decision Making - Medical Decision Making This is a 51-year-old -[place] man with a history of schizophrenia, hypertension, [id number] diabetes, seizures and dementia who presents to the ED with complaint of acute onset persistent painful distal left great toe pain and swelling with mild erythematous rash in left foot swelling after he aggressively cut his distal left great toe nail about 2 weeks ago. Patient stated that the pain and swelling have been persistent and especially worse in the last 1 week. In the ED, patient is alert and oriented x3 and is not in any distress. Patient was treated for pain in the ED also received initial oral antibiotics. The left great toe was cleaned extensively with normal saline and Betadine solutions. Lidocaine 1% solution was used as anesthetic. When anesthesia was fully achieved, the wound was incised and drained using with #11 scalpel blade. Copious thick purulent discharge drained from the wound. The wound was then extensively debrided with normal saline, breaking flocculation's. The wound was then packed with sterile 4 x 4 gauze and dressed appropriately with 4 x 4 gauze and Kerlix. Patient tolerated the procedure well. On reevaluation, patient's pain is well controlled medication. Patient will not discharge home on pain medication antibiotics and advised to follow-up with his primary care physician in 5 to 7 days for reevaluation. Patient was advised to follow-up with his perforator operator in 7 to 10 days for reevaluation. Patient is advised return to the ED immediately if symptoms get worse - Differential Diagnosis Cellulitis; cutaneous abscess; folliculitis; paronychia Critical care attestation.: If time is entered above; I have spent that time in minutes in the direct care of this critically ill patient, excluding procedure time. ED Disposition Clinical Impression: Cellulitis of great toe of left foot Puncture wound of great toe of left foot Qualifiers: Encounter type: initial encounter Qualified Code(s): S91.132A - Puncture wound without foreign body of left great toe without damage to nail, initial encounter Disposition: 01 HOME / SELF CARE / HOMELESS Is pt being admited?: No Does the pt Need Aspirin: No Condition: Stable Instructions: Puncture Wound, Cellulitis, Adult, [id number], Paronychia, [id number] Additional Instructions: Your left foot and left great toe pain is due to infection in the distal left great toe following the aggressive cutting of the left great toenail. Therefore take medication with food, drink plenty of fluids and follow-up with your primary care physician in 7 to 10 days for reevaluation. Return to the ED immediately if symptoms get worse. Prescriptions: Acetaminophen [Tylenol] 500 mg PO Q6HR PRN #30 tablet PRN Reason: Pain , Severe (7-10) Sulfamethoxazole/Trimethoprim [Bactrim DS TAB] 1 each PO Q12H #20 tab Naproxen 500 mg PO Q12H PRN #24 tab PRN Reason: Pain , Severe (7-10) Referrals: [facility] [Provider Group] - 7-10 days Time of Disposition: 03:59 Print Language: NIGERIAN
== END 2021-12-10 06:08 | disposition home or self-care (01) ==
LOC: ED 19:43
DX: S91.132A Puncture wound without foreign body of left great toe without damage to nail, initial encounter (principal); L03.032 Cellulitis of left toe; I10 Essential (primary) hypertension; E11.8 Type 2 diabetes mellitus with unspecified complications; X58.XXXA Exposure to other specified factors, initial encounter; Y93.89 Activity, other specified; Y92.89 Other specified places as the place of occurrence of the external cause; Y99.8 Other external cause status
CPT/HCPCS: 99282

== ENCOUNTER 2022-01-02 13:22 | Emergency (ER) | payer MEDICARE ==
[2022-01-02] MEDS ORDERED: METOCLOPRAMIDE 10 MG TAB PO ONE (14:27)
[2022-01-02] MEDS ORDERED: ACETAMINOPHEN 500 MG TAB PO ONE (14:27)
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
--- NOTE | 2022-01-02 15:46 | Cat Scan Report ---
. CT head/brain wo con INDICATION / CLINICAL INFORMATION: 51 years Male; Closed head injury and concussion. TECHNIQUE: Routine CT head without contrast. All CT scans at this location are performed using CT dos e reduction for ALARA by means of automated exposure control. COMPARISON: The study is compared to previous CT of 08/12/2021. FINDINGS: BRAIN / INTRACRANIAL CONTENTS: There is a large hematoma involving the right frontal scalp. However, there is no clear CT evidence of acute intracranial hemorrhage or significant mass effect. The ventri cular system remains unchanged in size and configuration. The brain parenchyma appears to demonstrate appropriate attenuation for age. ORBITS: No significant abnormality of visualized orbits. SINUSES / MASTOIDS: No significant abnormality in the visualized paranasal sinuses or mastoid air sara ls. CRANIOCERVICAL JUNCTION: No significant abnormality. ADDITIONAL FINDINGS: None. IMPRESSION: 1. There is a large right frontal scalp hematoma. However, there is no clear CT evidence of acute int racranial hemorrhage. Signer Name: Gurwinder Treviño MD Signed: 01/02/2022 3:41 PM Workstation Name: [id number]
[2022-01-02 17:51] VITALS: BP 132/60
== END 2022-01-02 17:50 | disposition home or self-care (01) ==
LOC: ED 13:22
DX: S00.83XS Contusion of other part of head, sequela (principal); S09.90XS Unspecified injury of head, sequela; X58.XXXS Exposure to other specified factors, sequela
CPT/HCPCS: 70450; 99283

== ENCOUNTER 2022-01-17 07:47 | Emergency (ER) | payer MEDICARE ==
--- NOTE | 2022-01-17 12:34 | Emergency Department Report ---
ED Back Pain/Injury HPI - General Chief Complaint: Back Pain/Injury Stated Complaint: BACK PAIN Source: patient Limitations: No Limitations - Related Data Home Medications Medication Instructions Recorded Confirmed Last Taken donepeziL [Aricept] 10 mg PO DAILY 12/12/20 08/13/21 12/11/20 AtorvaSTATin [Lipitor] 20 mg PO QHS 08/16/21 08/16/21 Unknown Previous Rx's Medication Instructions Recorded Last Taken Type Sertraline [Zoloft] 100 mg PO DAILY #30 tab 12/17/20 Unknown Rx ALBUTEROL NEB's [Proventil 0.083% 2.5 mg IH Q4HRT PRN nebu 08/22/21 Unknown Rx NEBS] Epoetin Kevin-Epbx 10,000 Unit 10,000 unit IV PEREZ PRN vial 08/22/21 Unknown Rx [Retacrit] Insulin Glargine [Lantus VIAL] 55 units SUB-Q QAMDIAB units 08/22/21 Unknown Rx Insulin Regular, Human [HumuLIN R] 15 units SUB-Q ACHS units 08/22/21 Unknown Rx Metoprolol [Lopressor TAB] 50 mg PO BID tablet 08/22/21 Unknown Rx Pantoprazole [Protonix TAB] 40 mg PO DAILY tablet 08/22/21 Unknown Rx Sennosides Tab [Senokot] 17.2 mg PO QHS tablet 08/22/21 Unknown Rx amLODIPine 10 mg PO DAILY tablet 08/22/21 Unknown Rx levETIRAcetam [Keppra TAB] 250 mg PO DAILY tablet 08/22/21 Unknown Rx Acetaminophen [Tylenol] 500 mg PO Q6HR PRN #30 tablet 12/10/21 Unknown Rx Naproxen 500 mg PO Q12H PRN #24 tab 12/10/21 Unknown Rx Sulfamethoxazole/Trimethoprim 1 each PO Q12H #20 tab 12/10/21 Unknown Rx [Bactrim DS TAB] Acetaminophen [Non-Aspirin Extra 500 mg PO Q6HR PRN #30 tablet 01/02/22 Unknown Rx Strength] Metoclopramide [Reglan] 10 mg PO QID PRN #30 tablet 01/02/22 Unknown Rx Allergies Allergy/AdvReac Type Severity Reaction Status Date / Time No Known Allergies Allergy Verified 01/17/22 08:06 ED Review of Systems ROS: Stated complaint: BACK PAIN Other details as noted in HPI ED Past Medical Hx - Past Medical History Hx Hypertension: Yes Hx Congestive Heart Failure: No Hx Diabetes: Yes Hx Renal Disease: No Hx Arthritis: No Hx Seizures: Yes Hx Psychiatric Treatment: Yes (schizo anxiety) Hx Asthma: No Hx COPD: No Hx Dementia: No Additional medical history: dementia - Surgical History Hx Cholecystectomy: No Hx Appendectomy: No Additional Surgical History: gastric. right ankle. hernia with mesh - Social History Smoking Status: Never Smoker Substance Use Type: None - Medications Home Medications: Home Medications Medication Instructions Recorded Confirmed Last Taken Type donepeziL [Aricept] 10 mg PO DAILY 12/12/20 08/13/21 12/11/20 History Sertraline [Zoloft] 100 mg PO DAILY #30 tab 12/17/20 08/13/21 Unknown Rx AtorvaSTATin [Lipitor] 20 mg PO QHS 08/16/21 08/16/21 Unknown History ALBUTEROL NEB's [Proventil 0.083% 2.5 mg IH Q4HRT PRN nebu 08/22/21 Unknown Rx NEBS] Epoetin Kevin-Epbx 10,000 Unit 10,000 unit IV PEREZ PRN vial 08/22/21 Unknown Rx [Retacrit] Insulin Glargine [Lantus VIAL] 55 units SUB-Q QAMDIAB units 08/22/21 Unknown Rx Insulin Regular, Human [HumuLIN R] 15 units SUB-Q ACHS units 08/22/21 Unknown Rx Metoprolol [Lopressor TAB] 50 mg PO BID tablet 08/22/21 Unknown Rx Pantoprazole [Protonix TAB] 40 mg PO DAILY tablet 08/22/21 Unknown Rx Sennosides Tab [Senokot] 17.2 mg PO QHS tablet 08/22/21 Unknown Rx amLODIPine 10 mg PO DAILY tablet 08/22/21 Unknown Rx levETIRAcetam [Keppra TAB] 250 mg PO DAILY tablet 08/22/21 Unknown Rx Acetaminophen [Tylenol] 500 mg PO Q6HR PRN #30 tablet 12/10/21 Unknown Rx Naproxen 500 mg PO Q12H PRN #24 tab 12/10/21 Unknown Rx Sulfamethoxazole/Trimethoprim 1 each PO Q12H #20 tab 12/10/21 Unknown Rx [Bactrim DS TAB] Acetaminophen [Non-Aspirin Extra 500 mg PO Q6HR PRN #30 tablet 01/02/22 Unknown Rx Strength] Metoclopramide [Reglan] 10 mg PO QID PRN #30 tablet 01/02/22 Unknown Rx ED Physical Exam - General Limitations: No Limitations ED Course Vital Signs 01/17/22 08:05 Temperature 97.5 F L Pulse Rate 94 H Respiratory 16 Rate Blood Pressure 131/86 [Right] O2 Sat by Pulse 98 Oximetry Critical care attestation.: If time is entered above; I have spent that time in minutes in the direct care of this critically ill patient, excluding procedure time. ED Disposition Condition: Stable
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
[2022-01-17 13:50] VITALS: BP 119/82
== END 2022-01-17 13:50 | disposition home or self-care (01) ==
LOC: ED 07:47
DX: M54.2 Cervicalgia (principal); M54.9 Dorsalgia, unspecified; I10 Essential (primary) hypertension; E11.9 Type 2 diabetes mellitus without complications
CPT/HCPCS: 99282

== ENCOUNTER 2022-01-26 15:36 | Emergency (ER) | payer MEDICARE | END 2022-01-26 23:10 | disposition left against medical advice (07) | LOC: ED 15:36 | DX: L60.8 Other nail disorders (principal); Z53.21 Procedure and treatment not carried out due to patient leaving prior to being seen by health care provider ==